=== PATIENT | male | born 1940 | race Caucasian/White ===

== ENCOUNTER 2019-04-16 15:13 | Emergency (ER) | payer OTHER ==
[2019-04-16 15:27] VITALS: BMI 27.6
--- NOTE | 2019-04-16 17:25 | PDOC ---
History of Present Illness - General Chief Complaint: Urinary Problem Stated Complaint: ENLARGED PROSTATE Time Seen by Provider: 04/16/19 17:20 Past History - Past Medical History Allergies/Adverse Reactions: Allergies Allergy/AdvReac Type Severity Reaction Status Date / Time No Known Allergies Allergy Verified 04/16/19 15:26 Home Medications: Ambulatory Orders Carvedilol [Coreg -] 12.5 mg PO BID 12/01/14 Cephalexin [Keflex] 500 mg PO QID #20 capsule 12/01/14 Ramipril 10 mg PO DAILY 12/01/14 COPD: No Disorders: Yes HTN: Yes - Immunization History Immunization Up to Date: Yes - Suicide/Smoking/Psychosocial Hx Smoking History: Never smoked Hx Alcohol Use: No Substance Use Type: None *Physical Exam - Vital Signs Last Vital Signs Temp Pulse Resp BP Pulse Ox 97.6 F 75 18 109/73 99 04/16/19 15:21 04/16/19 15:21 04/16/19 15:21 04/16/19 15:21 04/16/19 15:21 *DC/Admit/Observation/Transfer Diagnosis at time of Disposition: Loose bowel movements - Discharge Dispostion Disposition: HOME Condition at time of disposition: Stable Decision to Admit order: No - Referrals Referrals: Cady Gutierrez MD [Primary Care Provider] - - Patient Instructions Printed Discharge Instructions: DI for Diarrhea and Traveler's Diarrhea -- Adult Additional Instructions: You were seen in the emergency department for loose bowel movements after starting a new medication. Please follow up with your primary care provider as soon as possible, as well as your urologist within the next 7 days. Please return to the emergency department if you develop high fevers, nausea, vomiting , diarrhea that is not controlled with over the counter medication, bloody diarrhea, weakness, lightheadedness, or if you develop other symptoms that become concerning to you. - Post Discharge Activity
[2019-04-16] MEDS ORDERED: SODIUM CHLORIDE 0.9% 500 ML INFUS.BAG IV ONE (18:30)
[2019-04-16 19:16] LABS: BASO % 0.8 % (0-2.0); EOS % 1.8 % (0-4.5); HEMATOCRIT 34.7 % (35.4-49); HEMOGLOBIN 11.4 GM/dL (11.7-16.9); LYMPH % 21.9 % (8-40); MCH 27.4 pg (25.7-33.7); MCHC 32.9 g/dl (32.0-35.9); MEAN CELL VOLUME 83.4 fl (80-96); MEAN PLT VOLUME 7.9 fl (7.5-11.1); MONO % 11.7 % (3.8-10.2); NEUT % 63.8 % (42.8-82.8); PLATELET COUNT 298 K/MM3 (134-434); RBC 4.17 M/mm3 (4.00-5.60); RDW 14.2 % (11.9-15.9); WHITE BLOOD COUNT 8.4 K/mm3 (4.0-10.0)
--- NOTE | 2019-04-16 19:32 | PDOC ---
*Physical Exam - Vital Signs Last Vital Signs Temp Pulse Resp BP Pulse Ox 97.6 F 75 18 109/73 99 04/16/19 15:21 04/16/19 15:21 04/16/19 15:21 04/16/19 15:21 04/16/19 15:21 ED Treatment Course - LABORATORY CBC & Chemistry Diagram: 04/16/19 19:00 04/16/19 19:00 - ADDITIONAL ORDERS Additional order review: 04/16/19 19:00 RBC 4.17 MCV 83.4 MCHC 32.9 RDW 14.2 MPV 7.9 Neutrophils % 63.8 Lymphocytes % 21.9 Monocytes % 11.7 H Eosinophils % 1.8 Basophils % 0.8 - Medications Given in the ED: ED Medications Discontinued Medications Generic Name Dose Route Start Last Admin Trade Name Freq PRN Reason Stop Dose Admin Sodium Chloride 1,000 ml 04/16/19 18:30 04/16/19 18:59 Normal Saline - IV 04/16/19 18:31 1,000 ml ONCE ONE Administration Medical Decision Making - Medical Decision Making 04/16/19 19:27 78y/o M hx of BPH, HTN presented to ED for 4 loose bowel movements oand chills today. Plan: no loose stools while in the ED has received 1L Normal saline. Pending: CBC,CMP, dispo to home to follow up with PCP if labs are unremarkable *DC/Admit/Observation/Transfer Diagnosis at time of Disposition: Loose bowel movements - Discharge Dispostion Disposition: HOME Condition at time of disposition: Stable - Referrals Referrals: Cady Gutierrez MD [Primary Care Provider] - - Patient Instructions Printed Discharge Instructions: DI for Diarrhea and Traveler's Diarrhea -- Adult Additional Instructions: You were seen in the emergency department for loose bowel movements after starting a new medication. Please follow up with your primary care provider as soon as possible, as well as your urologist within the next 7 days. Please return to the emergency department if you develop high fevers, nausea, vomiting , diarrhea that is not controlled with over the counter medication, bloody diarrhea, weakness, lightheadedness, or if you develop other symptoms that become concerning to you. - Post Discharge Activity
[2019-04-16 19:47] LABS: ALBUMIN 3.5 g/dl (3.4-5.0); BILIRUBIN,TOTAL 0.3 mg/dL (0.2-1); BLOOD UREA NITROGEN 38.5 mg/dL (7-18); CALCIUM 9.1 mg/dL (8.5-10.1); CREATININE 2.2 mg/dL (0.55-1.3); POTASSIUM 4.1 mmol/L (3.5-5.1); TOT PROT 6.9 g/dl (6.4-8.2)
[2019-04-16 20:10] VITALS: BP 148/77; PULSE 74; TEMP 98
--- NOTE | 2019-04-16 20:36 | PDOC ---
Documentation entered by Oliva Field SCRIBE, acting as scribe for Cain Brower MD. Cain Brower MD: This documentation has been prepared by the Emir jeong Nirvannie, SCRIBE, under my direction and personally reviewed by me in its entirety. I confirm that the documentation accurately reflects all work, treatment, procedures, and medical decision making performed by me. Attending Attestation - Resident Resident Name: KoleThor - ED Attending Attestation I have performed the following: I have examined & evaluated the patient, The case was reviewed & discussed with the resident, I agree w/resident's findings & plan - HPI HPI: 04/16/19 18:38 CC: Loose stool. HPI: The patient is a 78 year old male, with a significant past medical history of BPH and HTN, who presents to the emergency department with, loose non-bloody stool. As per patient, he recently was started on an unknown medication for his BPH and endorses two episodes of loose stool (one yesterday and one today). He denies any recent fevers, chills, headache or dizziness. He denies any recent nausea or vomit. He denies any recent chest pain or shortness of breath. Allergies: NKDA Primary Care Physician: Dr. Gutierrez - Physicial Exam PE: 04/16/19 20:46 Vitals: Triage Vital signs reviewed General Appearance: no acute distress, well nourished well developed, Head: Atraumatic, normocephalic Neck: Supple;No Nuchal rigidity Chest Wall: Nontender Cardiac: Regular rate and rhythm, no murmurs, no rubs, no gallops, Lungs: Clear to auscultation bilateral, good air movement bilaterally, Abdomen: Soft, nondistended, normal bowel sounds, nontender to palpation Rectal: Exam deferred Extremities: Full range of motion to all extremities, no cyanosis, clubbing, or edema Skin: Warm and dry, no rashes or lesions, no petechiae Neuro: AOX3; Cranial Nerves 2-12 grossly c intact, Strength intact to all extremities, Sensation intact to all extremities, gait normal Psych: normal mood, normal affect - Medical Decision Making 04/17/19 00:41 78 years old with chronic kidney disease enlarged prostate recently started on a new prostate medication presents ED with 2 day history of diarrhea Labs within normal limits. (Known CKD) Patient will follow up with his primary care provider this week. Findings, need follow-up and strict return instructions discussed with patient.
== END 2019-04-16 20:15 | disposition home or self-care (01) ==
LOC: JER 15:13
PROC: 3E0337Z Introduction of Electrolytic and Water Balance Substance into Peripheral Vein, Percutaneous Approach (ICD-10-PCS; principal; 2019-04-16)
DX: R19.5 Other fecal abnormalities (principal); T50.995A Adverse effect of other drugs, medicaments and biological substances, initial encounter; Y92.89 Other specified places as the place of occurrence of the external cause; N40.0 Benign prostatic hyperplasia without lower urinary tract symptoms; I10 Essential (primary) hypertension
CPT/HCPCS: 36415; 80053; 85025; 99282-25

== ENCOUNTER 2019-04-21 10:07 | Emergency (ER) | payer OTHER ==
[2019-04-21 10:20] VITALS: TEMP 98.1; BMI 27.2
[2019-04-21 11:19] LABS: URINE APPEARANCE Slightly Cloudy; URINE BILIRUBIN 2+ (NEGATIVE); URINE COLOR Orange; URINE GLUCOSE (UA) Negative (NEGATIVE); URINE KETONE Trace (NEGATIVE); URINE LEUK ESTERASE 3+ (NEGATIVE); URINE NITRITE Positive (NEGATIVE); URINE PROTEIN 3+ (NEGATIVE)
[2019-04-21 11:47] LABS: BASO % 0.8 % (0-2.0); EOS % 0.8 % (0-4.5); HEMATOCRIT 30.8 % (35.4-49); HEMOGLOBIN 10.5 GM/dL (11.7-16.9); LYMPH % 14.7 % (8-40); MCH 28.1 pg (25.7-33.7); MCHC 34.1 g/dl (32.0-35.9); MEAN CELL VOLUME 82.4 fl (80-96); MEAN PLT VOLUME 6.8 fl (7.5-11.1); MONO % 8.2 % (3.8-10.2); NEUT % 75.5 % (42.8-82.8); PLATELET COUNT 417 K/MM3 (134-434); RBC 3.74 M/mm3 (4.00-5.60); WHITE BLOOD COUNT 9.8 K/mm3 (4.0-10.0)
[2019-04-21] MEDS ORDERED: CEFTRIAXONE 1,000 MG in DEXTROSE 5%-WATER - 50 ML IVPB ONE (11:52)
--- NOTE | 2019-04-21 11:58 | PDOC ---
Attending Attestation - Resident Resident Name: Tl Weiss - ED Attending Attestation I have performed the following: I have examined & evaluated the patient, The case was reviewed & discussed with the resident, I agree w/resident's findings & plan, Exceptions are as noted - HPI HPI: 04/21/19 11:56 78y M hx of urinary retention, curently being worked up by urology presents with hemturia and dysuria yesterday, had gone to his urologist and had a campo placed , started on keflx (but pt had yet to fill his rx). note this morning he felt malaise this morning withou any focality including cp, sob, n/v, diaphoresis, abd pain, back pain, fever/chills. on exam pt wel appearing in no distress card: rrr no mrg pulm: cta b/l abd soft nontender, nondistended abdomen, no cva tenderness, campo in place w/ leg bag pts UA noted fo Richard will ck basic labs will give 1st dose of abx deedee gonzalez
[2019-04-21 12:00] LABS: INR 1.26 (0.83-1.09); PROTHROMBIN TIME (PATIENT) 14.9 SEC (9.7-13.0)
[2019-04-21] MEDS ORDERED: CEFTRIAXONE 1 GM/50 ML BAG ONE (12:00)
[2019-04-21] MEDS ORDERED: SODIUM CHLORIDE 0.9% 1000 ML INFUS.BAG IV ONE (12:24)
[2019-04-21 12:25] LABS: ALBUMIN 3.1 g/dl (3.4-5.0); BILIRUBIN,TOTAL 0.4 mg/dL (0.2-1); BLOOD UREA NITROGEN 25.5 mg/dL (7-18); CALCIUM 8.6 mg/dL (8.5-10.1); CREATININE 1.7 mg/dL (0.55-1.3); POTASSIUM 4.3 mmol/L (3.5-5.1); TOT PROT 6.2 g/dl (6.4-8.2)
--- NOTE | 2019-04-21 12:43 | PDOC ---
History of Present Illness - General Chief Complaint: Hematuria Stated Complaint: HEMATURIA Time Seen by Provider: 04/21/19 10:21 History Source: Patient Exam Limitations: No Limitations - History of Present Illness Initial Comments: 04/21/19 12:42 78M with a PMH of HTN and BPH who presents to the ER from his urologist's office for hematuria. The patient states that he has had recent urological issues requiring multiple campo catheter insertions. Yesterday, he began to feel unwell and went to his urologists office. He noticed blood in his urine while giving a sample. He then had a campo catheter placed for retention. Since then, he's noticed that he still has red/pink urine but it has been clearing up. He also admits to "some" suprapubic abdominal pain which started last night. He denies fever, chills, nausea, vomiting, discharge, testicular pain, CP , SOB. He states that he came to the ER because he felt lightheaded this morning but denies other symptoms as mentioned. Past History - Past Medical History Allergies/Adverse Reactions: Allergies Allergy/AdvReac Type Severity Reaction Status Date / Time No Known Allergies Allergy Verified 04/16/19 15:26 Home Medications: Ambulatory Orders Carvedilol [Coreg -] 25 mg PO BID 12/01/14 Ramipril 10 mg PO DAILY 12/01/14 Dutasteride 0.5 mg PO DAILY 04/21/19 Silodosin 8 mg PO DAILY 04/21/19 COPD: No Disorders: Yes HTN: Yes Other medical history: enlarged prostate - Immunization History Immunization Up to Date: Yes - Psycho Social/Smoking Cessation Hx Smoking History: Never smoked Have you smoked in the past 12 months: No Information on smoking cessation initiated: No Hx Alcohol Use: No Drug/Substance Use Hx: No Substance Use Type: None Review of Systems - Review of Systems Able to Perform ROS?: Yes Comments:: 04/21/19 12:47 GENERAL/CONSTITUTIONAL: No fever or chills. No weakness. HEAD, EYES, EARS, NOSE AND THROAT: No change in vision. No ear pain or discharge. No sore throat. CARDIOVASCULAR: + for lightheadedness. No chest pain or palpitations RESPIRATORY: No cough, wheezing, shortness of breath, or hemoptysis. GASTROINTESTINAL: + for suprapubic abd pain. No nausea, vomiting, diarrhea, or constipation. GENITOURINARY: + for dysuria and hematuria. No frequency or change in urination. MUSCULOSKELETAL: No joint or muscle swelling or pain. No neck or back pain. SKIN: No rash or lesions. NEUROLOGIC: No headache, numbness, tingling, focal weakness, loss of consciousness, or change in strength/sensation. Is the patient limited Malay proficient: No *Physical Exam - Vital Signs Last Vital Signs Temp Pulse Resp BP Pulse Ox 98.1 F 67 16 122/83 100 04/21/19 10:16 04/21/19 10:16 04/21/19 10:16 04/21/19 10:16 04/21/19 10:16 - Physical Exam Comments: 04/21/19 12:47 GENERAL: Well developed, well nourished. Awake and alert. No acute distress. HEENT: Normocephalic, atraumatic. Hearing grossly normal. Moist mucous membranes. PERRLA, EOMI. No conjunctival pallor. Sclera are non-icteric. NECK: Supple. Full ROM. No JVD. CARDIOVASCULAR: Regular rate and rhythm. No murmurs, rubs, or gallops. PULMONARY: No evidence of respiratory distress. Lungs clear to auscultation bilaterally. No wheezing, rales or rhonchi. ABDOMINAL: Soft. Mild TTP in suprapubic abdomen. Non-distended. No rebound or guarding. GENITOURINARY: No CVA tenderness bilaterally. Campo catheter in place. MUSCULOSKELETAL: Normal range of motion at all joints. No bony deformities or tenderness. EXTREMITIES: No cyanosis. No clubbing. No edema. No calf tenderness or swelling. SKIN: Warm and dry. Normal capillary refill. No rashes. No jaundice. NEUROLOGICAL: Alert, awake, appropriate. Cranial nerves 2-12 grossly intact. Normal speech. Gait is normal without ataxia. PSYCHIATRIC: Cooperative. Good eye contact. Appropriate mood and affect. ED Treatment Course - LABORATORY CBC & Chemistry Diagram: 04/21/19 11:40 04/21/19 11:40 - ADDITIONAL ORDERS Additional order review: Laboratory Results 04/21/19 04/21/19 04/21/19 11:40 11:40 11:40 PT with INR 14.90 H INR 1.26 H Sodium 136 Potassium 4.3 Chloride 102 Carbon Dioxide 25 Anion Gap 9 BUN 25.5 H Creatinine 1.7 H Est GFR (CKD-EPI)AfAm 44.41 Est GFR (CKD-EPI)NonAf 38.32 Random Glucose 105 Calcium 8.6 Total Bilirubin 0.4 AST 14 L ALT 32 Alkaline Phosphatase 92 Creatine Kinase 267 Troponin I < 0.02 Total Protein 6.2 L Albumin 3.1 L Urine Color Urine Appearance Urine pH Ur Specific [place] Urine Protein Urine Glucose (UA) Urine Ketones Urine Blood Urine Nitrite Urine Bilirubin Urine Urobilinogen Ur Leukocyte Esterase 04/21/19 10:40 PT with INR INR Sodium Potassium Chloride Carbon Dioxide Anion Gap BUN Creatinine Est GFR (CKD-EPI)AfAm Est GFR (CKD-EPI)NonAf Random Glucose Calcium Total Bilirubin AST ALT Alkaline Phosphatase Creatine Kinase Troponin I Total Protein Albumin Urine Color [place] Urine Appearance Slightly cloudy Urine pH 7.0 Ur Specific [place] 1.020 Urine Protein 3+ H Urine Glucose (UA) Negative Urine Ketones Trace Urine Blood 3+ H Urine Nitrite Positive Urine Bilirubin 2+ H Urine Urobilinogen 1.0 Ur Leukocyte Esterase 3+ H 04/21/19 11:40 RBC 3.74 L MCV 82.4 MCHC 34.1 RDW 14.0 MPV 6.8 L D Neutrophils % 75.5 Lymphocytes % 14.7 D Monocytes % 8.2 Eosinophils % 0.8 Basophils % 0.8 - Medications Given in the ED: ED Medications Discontinued Medications Generic Name Dose Route Start Last Admin Trade Name Freq PRN Reason Stop Dose Admin Ceftriaxone Sodium 1,000 mg/ 50 mls @ 100 mls/hr 04/21/19 11:52 04/21/19 12: 04 Dextrose IVPB 04/21/19 12:21 100 mls/hr ONCE ONE Administration Sodium Chloride 1,000 ml 04/21/19 12:24 04/21/19 12:34 Normal Saline - IV 04/21/19 12:25 1,000 ml ONCE ONE Administration Medical Decision Making - Medical Decision Making 04/21/19 12:48 78M with a PMH of BPH and HTN who presents to the ER with complaints of hematuria and lightheadedness. EKG and troponin WNL. CBC shows Hgb of 10.5 from 11.4. UA shows UTI for which he was prescribed outpt abx yesterday but did not fill. Will give 1 g ceftraixone here and fluids. Case d/w Dr. Price at [facility] who agrees with plan and will f/u w/ patient in an outpatient setting. Discharge - Discharge Information Problems reviewed: Yes Clinical Impression/Diagnosis: Hematuria Qualifiers: Hematuria type: unspecified type Qualified Code(s): R31.9 - Hematuria, unspecified Condition: Stable Disposition: HOME - Admission No - Follow up/Referral Referrals: Cady Gutierrez MD [Primary Care Provider] - - Patient Discharge Instructions Patient Printed Discharge Instructions: How to Care for Your Campo Catheter -- Male Additional Instructions: Your ER visit is not complete until your follow up with your urologist and primary care physician. Please follow up with your primary care physician in 1- 2 days. Keep your appointment with your urologist. GET YOUR ANTIBIOTICS FILLED AND TAKE THEM PRESCRIBED. Please return to the ER if you have any signs or symptoms of chest pain, shortness of breath, uncontrollable fever, chills, nausea, vomiting, numbness, tingling, or weakness in any part of your body, changes in vision, or slurred speech. Please take your medications as prescribed. Please return to the ER if symptoms persist, worsen, or new symptoms arise. - Post Discharge Activity
[2019-04-21 13:14] LABS: EPI CELLS 21 /HPF (0-5/HPF); HYALINE CASTS 45.76 /lpf (0-8); URINE BACTERIA 2+ /hpf (NEGATIVE); URINE RBC 398.1 /hpf (0-4)
[2019-04-21 13:55] VITALS: BP 133/77; PULSE 62
--- NOTE | 2019-04-21 13:58 | EKG ---
Test Reason : Blood Pressure : / mmHG Vent. Rate : 069 BPM Atrial Rate : 069 BPM P-R Int : 162 ms QRS Dur : 096 ms QT Int : 426 ms P-R-T Axes : 064 023 028 degrees QTc Int : 456 ms SINUS RHYTHM WITH OCCASIONAL PREMATURE VENTRICULAR COMPLEXES AND PREMATURE ATRIAL COMPLEXES OTHERWISE NORMAL ECG NO PREVIOUS ECGS AVAILABLE Confirmed by RAI NOEL MD ([id number]) on 04/21/2019 1:58:18 PM Referred By: Confirmed By:RAI NOEL MD
== END 2019-04-21 15:20 | disposition home or self-care (01) ==
LOC: JER 10:07
DX: N39.0 Urinary tract infection, site not specified (principal); R31.9 Hematuria, unspecified; N40.0 Benign prostatic hyperplasia without lower urinary tract symptoms; I10 Essential (primary) hypertension; B95.1 Streptococcus, group B, as the cause of diseases classified elsewhere
CPT/HCPCS: 36415; 80053; 81003; 82550; 82553; 84484; 85025; 85610; 87077; 87086; 93005; 93010; 96365; 99283-25; J7030

== ENCOUNTER 2019-04-23 09:25 | Inpatient (IN) | payer OTHER ==
--- NOTE | 2019-04-23 09:50 | PDOC ---
History of Present Illness - General Chief Complaint: Urinary Problem Stated Complaint: HEMATURIA Time Seen by Provider: 04/23/19 09:49 History Source: Patient Exam Limitations: No Limitations - History of Present Illness Initial Comments: Pt is a 78 yo M, with PMH of HTN, BPH, and recent campo catheterization 2/2 BPH/ bladder stricture, who is presenting with hematuria in the campo bag. Pt states the hematuria had improved since his last visit to the ER a few days ago, but noticed increased irritation and pain at the tip of his penis. The campo is draining well with no leakage around the meatus. Pt started PO abx after this visit (500 mg PO keflex TID). Pt denies any recent fevers/chills, headache, vision changes, syncope, chest pain, palpitations, SOB, nausea/vomiting, abdominal pain, diarrhea/constipation, or leg swelling. Allergies: NKDA PCP: Dr. Gutierrez Social: Pt denies any cigarette, alcohol, or drug use. Pt denies any recent travel or sick contacts. Surgical: no relevant history. Family: no relevant history. 04/23/19 11:23 04/23/19 12:55 Past History - Travel Traveled outside of the country in the last 30 days: No Close contact w/someone who was outside of country & ill: No - Past Medical History Allergies/Adverse Reactions: Allergies Allergy/AdvReac Type Severity Reaction Status Date / Time No Known Allergies Allergy Verified 04/23/19 09:38 Home Medications: Ambulatory Orders Carvedilol [Coreg -] 25 mg PO BID 12/01/14 Ramipril 10 mg PO DAILY 12/01/14 Silodosin 8 mg PO DAILY 04/21/19 Cephalexin [Keflex] 500 mg PO TID 04/23/19 Dutasteride 0.5 mg PO DAILY 04/23/19 COPD: No Disorders: Yes HTN: Yes - Immunization History Immunization Up to Date: Yes - Psycho Social/Smoking Cessation Hx Smoking History: Never smoked Have you smoked in the past 12 months: No Hx Alcohol Use: No Drug/Substance Use Hx: No Substance Use Type: None Review of Systems - Review of Systems Able to Perform ROS?: Yes Is the patient limited Japanese proficient: No Constitutional: Yes: Weight Stable. No: Chills, Diaphoresis, Fever, Loss of Appetite, Malaise, Weakness HEENTM: No: Recent change in vision, Nose Congestion, Throat Pain, Throat Swelling, Difficulty Swallowing Respiratory: No: Cough, Orthopnea, Shortness of Breath Cardiac (ROS): No: Chest Pain, Edema, Irregular Heart Rate, Lightheadedness, Palpitations, Syncope, Chest Tightness ABD/GI: No: Abdominal Distended, Diarrhea, Nausea, Poor Appetite, Poor Fluid Intake, Vomiting : Yes: Hematuria, Other (penile irritation 2/2 campo placement, no penile discharge). No: Burning, Dysuria, Frequency, Flank Pain, Pain, Urgency Musculoskeletal: No: Back Pain, Muscle Pain, Muscle Weakness Integumentary: No: Rash Neurological: No: Headache, Numbness, Weakness, Unsteady Gait, Dizziness Psychiatric: No: Sleep Pattern Change, Change in Appetite Endocrine: No: Increased Urine, Change in Weight Hematologic/Lymphatic: Yes: Anemia. No: Blood Clots, Easy Bleeding, Easy Bruising All Other Systems: Reviewed and Negative *Physical Exam - Vital Signs Last Vital Signs Temp Pulse Resp BP Pulse Ox 97.3 F L 73 18 116/72 98 04/23/19 09:34 04/23/19 09:34 04/23/19 09:34 04/23/19 09:34 04/23/19 09:34 - Physical Exam Comments: Vitals stable, pt afebrile. Pt in NAD, normal body habitus. Pt alert and oriented x3. frame polisher generally intact, muscular strength and sensation intact. No midline spinal tenderness, step-offs, or crepitus. Head normocephalic, atraumatic. Eyes PERRLA, EOMI. Oropharynx without erythema or exudates, no LAD b/l. No nasal congestion. Hearing intact. Clear heart sounds, S1/S2, no JVD, b/l pedal edema, or heart murmur. Clear lung sounds, no respiratory distress, wheezes, crackles, or accessory muscle use. No abdominal or CVA tenderness to palpation, no rebound, no guarding. Abdomen soft, non-distended, and with normoactive bowel sounds. Campo catheter with hematuria (blood mixed into urine, no obvious clots). Mild erythema around penile meatus, no discharge or leakage of urine around campo. Skin without jaundice or rash. 04/23/19 13:00 ED Treatment Course - LABORATORY CBC & Chemistry Diagram: 04/23/19 10:10 04/23/19 10:10 Medical Decision Making - Medical Decision Making Pt was seen at bedside, also will be seen by attending Dr. Harley. Pt presenting with continued hematuria from campo, despite outpatient antibiotics. Will evaluate for stable H/H, renal function, urinary infection to determine need for campo catheter replacement. Pt will require admission if continued UTI , as pt has then failed outpatient trial of antibiotics. Provided 1 L IV NS for improvement of hydration. Will continue to reassess pt and monitor for symptomatic improvement. CBC -- stable H/H from last visit CMP -- BUN/Cr at pt baseline -- providing IVF UA shows continued UTI -- will replace campo catheter and provide 1 g IV ceftriaxone. Pt admitted to Dr. Gutierrez. Consult placed for Urology (Dr. Melgoza). Pt requires inpatient admission due to continued UTI after outpatient antibiotic trial. Pt has f/u with urology x2 days for further evaluation. 04/23/19 11:37 04/23/19 13:38 04/23/19 13:42 Discharge - Discharge Information Problems reviewed: Yes Clinical Impression/Diagnosis: Campo catheter in place UTI (urinary tract infection) Qualifiers: Urinary tract infection type: acute cystitis Hematuria presence: with hematuria Qualified Code(s): N30.01 - Acute cystitis with hematuria Hematuria Qualifiers: Hematuria type: unspecified type Qualified Code(s): R31.9 - Hematuria, unspecified Condition: Stable - Admission Yes - Follow up/Referral - Patient Discharge Instructions - Post Discharge Activity
--- NOTE | 2019-04-23 10:02 | PDOC ---
Attending Attestation - Resident Resident Name: HeatherMegan - ED Attending Attestation I have performed the following: I have examined & evaluated the patient, The case was reviewed & discussed with the resident, I agree w/resident's findings & plan, Exceptions are as noted - HPI HPI: 04/23/19 11:02 78yo male with hx of bph and urethra stricture with indwelling catheter presents for eval of hematuria. 3rd visit over last few days. Pt saw DR. Price on for hematuria- had had campo catheter placed. Dx with UTI - given abx on wednesday and started keflex yesterday. Pt states urine cleared yesterday, then this AM noticed pink tinged urine. Has had 3 days of abx. Pt states mild tinge of pain to tip of penis. No abd pain. No flank pain. NO f/c. No cp/sob. 1 episode of loose stool this AM. States had mild lightheaded this am- since resolved. No other complaints. - Physicial Exam PE: 04/23/19 11:07 Gen: aaox3, nad heart: +s1s2 reg lungs: cta b/l abd: soft,nt/nd +bs : penis with campo catheter in place, leg bag with pink tinged urine - no clots, specks of blood present, tip of penis with mild skin breakdown- no erythema, no drainage, no leakage around the campo ext: no c/c/e - Medical Decision Making 04/23/19 11:08 a/p: 78yo male with campo -recently dx uti and on keflex with return of hematuria today -pt with recent dx of mild kidney injury from urinary retention -scheduled for sx on wednesday with Dr. Price- urology -will resent labs, h/h, ua, ucx -pt has been on outpt abx -will monitor and reassess 04/23/19 11:40 pt without elevated wbc cr at baseline however, still with uti despite abx will admit for iv abx as pt is scheduled for bladder surgery and procedure on wednesday. resident discussed the case with Dr. Gutierrez who accepts pt to service
[2019-04-23] MEDS ORDERED: SODIUM CHLORIDE 1,000 ML IV STA (10:12)
[2019-04-23 10:33] LABS: EPI CELLS 36.1 /HPF (0-5/HPF); HYALINE CASTS 67 /lpf (0-8); URINE APPEARANCE TURBID; URINE BACTERIA 1.9 /hpf (NEGATIVE); URINE BILIRUBIN NEGATIVE (NEGATIVE); URINE COLOR RED; URINE GLUCOSE (UA) NEGATIVE (NEGATIVE); URINE KETONE NEGATIVE (NEGATIVE); URINE LEUK ESTERASE 2+ (NEGATIVE); URINE NITRITE NEGATIVE (NEGATIVE); URINE PROTEIN 3+ (NEGATIVE); URINE RBC 625 /hpf (0-4); URINE UROBILINOGEN 0.2 mg/dL (0.2-1.0); URINE WBC 21 /hpf (0-5)
[2019-04-23 10:42] LABS: EOS % 4.3 % (0-4.5); HEMATOCRIT 31.5 % (35.4-49); HEMOGLOBIN 10.4 GM/dL (11.7-16.9); MCH 27.3 pg (25.7-33.7); MCHC 33.1 g/dl (32.0-35.9); MEAN CELL VOLUME 82.6 fl (80-96); MEAN PLT VOLUME 7.7 fl (7.5-11.1); MONO % 8.6 % (3.8-10.2); NEUT % 68.1 % (42.8-82.8); PLATELET COUNT 495 K/MM3 (134-434); RBC 3.81 M/mm3 (4.00-5.60); WHITE BLOOD COUNT 8.2 K/mm3 (4.0-10.0)
[2019-04-23] MEDS ORDERED: CEFTRIAXONE 1,000 MG in DEXTROSE 5%-WATER - 50 ML IVPB ONE (10:55)
[2019-04-23 10:56] LABS: ALBUMIN 3.2 g/dl (3.4-5.0); BILIRUBIN,TOTAL 0.3 mg/dL (0.2-1); BLOOD UREA NITROGEN 22.3 mg/dL (7-18); CALCIUM 8.9 mg/dL (8.5-10.1); CREATININE 1.6 mg/dL (0.55-1.3); POTASSIUM 4.2 mmol/L (3.5-5.1); TOT PROT 6.2 g/dl (6.4-8.2)
[2019-04-23] MEDS ORDERED: CEFTRIAXONE 1 GM/50 ML BAG ONE (11:42)
[2019-04-23] MEDS ORDERED: RAMIPRIL 5 MG CAPSULE (FP) ONE (13:05)
[2019-04-23] MEDS: RAMIPRIL 5 MG CAPSULE (FP) PO SCH (13:10)
--- NOTE | 2019-04-23 14:49 | HP ---
DATE OF ADMISSION: 04/23/2019 This is a 78-year-old male, known to have hypertension, BPH, came to the emergency room with complaints of hematuria. He was seen by and Rhona, diagnosed to have UTI and BPH, planning for prostatic surgery, also known to have some renal insufficiency, thought to be because of retention of the urine. At present, he takes carvedilol 25 mg b.i.d. and ramipril 10 mg once a day. Also was taking silodosin and dutasteride for BPH. He is not a smoker. No drug abuse. 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 He has family. This morning, he is feeling better after the catheter, no dysuria. PHYSICAL EXAMINATION TODAY: Vital Signs: BP is 140/80, pulse 72, respiration 20, temperature 98. HEENT: Unremarkable. Neck: Supple, no JVD. Lungs: Clear. Heart: S1, S2 normal. No S3, S4. Abdomen: Soft. Legs: No edema. Neurological: Grossly normal. Genitourinary: Has a Syed. Urine is clear. LABORATORY REPORTS: WBC 8.2, hemoglobin 10.4, hematocrit 31.5. Chemistry: Sodium 136, potassium 4.2, chloride 104, BUN 22.3, creatinine 1.6, blood sugar 116. Urine: RBCs 20, leukocyte esterase plus, WBCs 21. Chest x-ray: Not done. EKG: Not evaluated. IMPRESSION: Urinary tract infection, benign prostatic hypertrophy, hypertension. PLAN: IV antibiotics; consult, Dr. Melgoza. Will follow. Daniel [id number]
[2019-04-23 17:13] VITALS: BMI 26.6
--- NOTE | 2019-04-23 19:07 | CONSULT ---
Consult Consult Specialty:: urology Reason for Consultation:: Gross hematuria - History of Present Illness Chief Complaint: 78 Y/O Male patient with history of DM, HT and BPH developed AUR 4 days ago and campo catheter was inserted then he presented to ER for gross hematuria nd fever, no pain. he admitted for IV abx. O/E soft lax abd, 18 F campo catheter inplace with clear urine drain. genitalia WNL. WBC 8.2. HGB 10.4. BUN 22.3 S.Creat 1.6 - Alcohol/Substance Use Hx Alcohol Use: Yes (OCCASIONAL) - Smoking History Smoking history: Former smoker Have you smoked in the past 12 months: No If you are a former smoker, when did you quit?: 1971 Home Medications - Allergies Allergies/Adverse Reactions: Allergies Allergy/AdvReac Type Severity Reaction Status Date / Time No Known Allergies Allergy Verified 04/23/19 09:38 - Home Medications Home Medications: Ambulatory Orders Carvedilol [Coreg -] 25 mg PO BID 12/01/14 Ramipril 10 mg PO DAILY 12/01/14 Silodosin 8 mg PO DAILY 04/21/19 Cephalexin [Keflex] 500 mg PO TID 04/23/19 Dutasteride 0.5 mg PO DAILY 04/23/19 Physical Exam Vital Signs: Vital Signs Temperature 98.5 F 04/23/19 18:14 Pulse Rate 74 04/23/19 18:14 Respiratory Rate 20 04/23/19 18:14 Blood Pressure 117/54 L 04/23/19 18:14 O2 Sat by Pulse Oximetry (%) 96 04/23/19 18:00 Labs: CBC, BMP 04/23/19 10:10 04/23/19 10:10 Assessment/Plan BPH & AUR Gross hematuria UTI Plan: keep campo catheter continue IV abx Renal and pelvic US will do Cystoscopy and possible TUVP later on
[2019-04-23] MEDS ORDERED: FLU VACCINE QUAD 60 MCG/0.5 ML (MDV 19-20) IM ONE (20:00)
[2019-04-23] MEDS ORDERED: CIPROFLOXACIN 400 MG/D5W 400 MG/200 ML IVPB IVPB SCH (22:00)
[2019-04-23] MEDS: CARVEDILOL 25 MG TABLET (FP) PO SCH (22:24)
[2019-04-24] MEDS: CARVEDILOL 25 MG TABLET (FP) PO SCH ×2 (09:53→21:26)
[2019-04-24] MEDS: RAMIPRIL 5 MG CAPSULE (FP) PO SCH (09:53)
--- NOTE | 2019-04-24 11:28 | PN ---
Progress Note, Physician Chief Complaint: No new complaints - Current Medication List Current Medications: Active Medications Carvedilol (Coreg -) 25 mg PO BID [facility] Last Admin: 04/24/19 09:53 Dose: 25 mg Levofloxacin (Levaquin 500 Mg Premixed Ivpb -) 500 mg in 100 mls @ 100 mls/hr IVPB DAILY [facility] Last Admin: 04/24/19 09:54 Dose: 100 mls/hr Ramipril (Altace -) 10 mg PO DAILY [facility] Last Admin: 04/24/19 09:53 Dose: 10 mg - Objective Vital Signs: Vital Signs Temperature 98.6 F 04/24/19 10:00 Pulse Rate 74 04/24/19 10:00 Respiratory Rate 20 04/24/19 10:00 Blood Pressure 127/78 04/24/19 10:00 O2 Sat by Pulse Oximetry (%) 96 04/24/19 09:00 HEENT: Mm moist NECK: No JVD, CHEST: CTA B/L CVS: S1S2 R ABD: No distention, non tender EXT: No edema feet, no calf tenderness PACKAGING ENGINEER: AOX3 non focal Labs: CBC, BMP 04/23/19 10:10 04/23/19 10:10 Problem List - Problems (1) UTI (urinary tract infection) Assessment/Plan: on Levofloxacin 500 mg IV daily Code(s): N39.0 - URINARY TRACT INFECTION, SITE NOT SPECIFIED Qualifiers: Urinary tract infection type: acute cystitis Hematuria presence: with hematuria Qualified Code(s): N30.01 - Acute cystitis with hematuria (2) Hematuria Assessment/Plan: Due to UTI improving Code(s): R31.9 - HEMATURIA, UNSPECIFIED Qualifiers: Hematuria type: unspecified type Qualified Code(s): R31.9 - Hematuria, unspecified (3) LUPIS (acute kidney injury) Assessment/Plan: Due to obstructive uropathy now stable Code(s): N17.9 - ACUTE KIDNEY FAILURE, UNSPECIFIED (4) HTN (hypertension) Assessment/Plan: well controlled cont current meds. Code(s): I10 - ESSENTIAL (PRIMARY) HYPERTENSION (5) BPH (benign prostatic hyperplasia) Assessment/Plan: cont home meds Code(s): N40.0 - BENIGN PROSTATIC HYPERPLASIA WITHOUT LOWER URINRY TRACT SYMP
[2019-04-24 12:41] LABS: BASO % 1.3 % (0-2.0); HEMATOCRIT 29.7 % (35.4-49); LYMPH % 27.9 % (8-40); MCH 27.9 pg (25.7-33.7); MCHC 33.5 g/dl (32.0-35.9); MEAN CELL VOLUME 83.3 fl (80-96); MEAN PLT VOLUME 6.7 fl (7.5-11.1); MONO % 9.9 % (3.8-10.2); NEUT % 56.9 % (42.8-82.8); PLATELET COUNT 493 K/MM3 (134-434); RBC 3.57 M/mm3 (4.00-5.60); WHITE BLOOD COUNT 7.5 K/mm3 (4.0-10.0)
[2019-04-24 13:04] LABS: BLOOD UREA NITROGEN 21.7 mg/dL (7-18); CALCIUM 9.1 mg/dL (8.5-10.1); CREATININE 1.8 mg/dL (0.55-1.3); POTASSIUM 4.6 mmol/L (3.5-5.1)
[2019-04-24] MEDS: BACITRACIN/POLYMYXIN B SULFATE 15 GM TUBE TP SCH ×2 (15:24→21:26)
[2019-04-25 06:43] LABS: BASO % 0.9 % (0-2.0); EOS % 3.9 % (0-4.5); HEMATOCRIT 29.2 % (35.4-49); HEMOGLOBIN 9.8 GM/dL (11.7-16.9); LYMPH % 33.8 % (8-40); MCH 27.8 pg (25.7-33.7); MCHC 33.5 g/dl (32.0-35.9); MEAN CELL VOLUME 82.8 fl (80-96); MEAN PLT VOLUME 7.1 fl (7.5-11.1); MONO % 8.5 % (3.8-10.2); NEUT % 52.9 % (42.8-82.8); PLATELET COUNT 501 K/MM3 (134-434); RBC 3.52 M/mm3 (4.00-5.60); RDW 14.5 % (11.9-15.9); WHITE BLOOD COUNT 8.4 K/mm3 (4.0-10.0)
[2019-04-25 07:11] LABS: BILIRUBIN,TOTAL 0.2 mg/dL (0.2-1); CALCIUM 8.8 mg/dL (8.5-10.1); CREATININE 1.8 mg/dL (0.55-1.3); POTASSIUM 4.3 mmol/L (3.5-5.1); TOT PROT 6.1 g/dl (6.4-8.2)
[2019-04-25] MEDS: RAMIPRIL 5 MG CAPSULE (FP) PO SCH (09:28)
[2019-04-25] MEDS: CARVEDILOL 25 MG TABLET (FP) PO SCH (09:29)
[2019-04-25] MEDS: BACITRACIN/POLYMYXIN B SULFATE 15 GM TUBE TP SCH (10:42)
--- NOTE | 2019-04-25 12:12 | DS ---
Physical Examination Vital Signs: Vital Signs Temperature 97.9 F 04/25/19 06:14 Pulse Rate 58 L 04/25/19 06:14 Respiratory Rate 20 04/25/19 09:00 Blood Pressure 140/65 04/25/19 06:14 O2 Sat by Pulse Oximetry (%) 98 04/25/19 09:00 HEENT: Mm moist NECK: No JVD, CHEST: CTA B/L CVS: S1S2 R ABD: No distention, non tender EXT: No edema feet, no calf tenderness CONTRACT NEGOTIATION SPECIALIST: AOX3 non focal Labs: CBC, BMP 04/25/19 05:30 04/25/19 05:30 Discharge Summary Reason For Visit: URINARY TRACT INFECTION/HEMATURIA Current Active Problems LUPIS (acute kidney injury) (Acute) BPH (benign prostatic hyperplasia) (Acute) Syed catheter in place (Acute) HTN (hypertension) (Acute) Hematuria (Acute) UTI (urinary tract infection) (Acute) Condition: Stable - Instructions Referrals: Cady Gutierrez MD [Primary Care Provider] - 1 Month Sami Melgoza MD [Staff Physician] - 05/02/19 10:00 am - Home Medications Comprehensive Discharge Medication List: Ambulatory Orders Carvedilol [Coreg -] 25 mg PO BID 12/01/14 Ramipril 10 mg PO DAILY 12/01/14 Silodosin 8 mg PO DAILY 04/21/19 Dutasteride 0.5 mg PO DAILY 04/23/19 levoFLOXacin [Levaquin -] 500 mg PO DAILY #7 tablet 04/24/19
[2019-04-25 12:30] VITALS: BP 132/88; PULSE 65; TEMP 97.6
== END 2019-04-25 15:24 | disposition home or self-care (01) | DRG 690 ==
LOC: JER 09:25 → JERBED 10:59 → J8W 15:34
PROVIDERS: ADMIT Internal Medicine; ATTEND Internal Medicine
DX: N30.01 Acute cystitis with hematuria (principal); N17.9 Acute kidney failure, unspecified; I10 Essential (primary) hypertension; N40.0 Benign prostatic hyperplasia without lower urinary tract symptoms; Z87.891 Personal history of nicotine dependence
CPT/HCPCS: 36415; 80048; 80053; 81003; 85025; 87086; 99284-25; J7030

== ENCOUNTER 2019-05-05 10:44 | Inpatient (IN) | payer OTHER ==
--- NOTE | 2019-05-05 11:03 | PDOC ---
History of Present Illness - General Chief Complaint: Lightheaded Stated Complaint: Lightheaded History Source: Patient, EMS Exam Limitations: No Limitations - History of Present Illness Initial Comments: 05/05/19 11:00 78YOM h/o HTN, BPH, CKD, and recently diagnosed BPH with urethral stricture now about a month s/p cystoscopy (after which time he was started on new medications ) who was BIBEMS for low wrist cuff BP and lightheadedness with vision blurriness, onset while he was sitting on his couch drinking coffee this morning. It worsened when he stood up from the couch and he needed to grab a rail to stabilize himself and his caught him, so he did not fall. EMS notes that their initial BP measurement was hypotensive. He was seen here in the ED on 04/16/19 (for diarrhea thought d/t one of his new medications which he has since stopped, now resolved), 04/21 (for hematuria and dysuria dx with UTI and went home with a Syed and on ciprofloxacin), and finally admitted on -04/25/19 with UTI and hematuria (got IV Levaquin and then discharged home with a Syed catheter on PO Levaquin). He notes he has been doing better for the past 10 days since discharge and finished the Levaquin without issue. He has had several other episodes of milder lightheadedness this past week. Denies LOC, n/t/w focally, chest pain, palpitations, edema, SALAZAR, neck pain, abdominal pain, hematuria, rectal bleeding, or other new issues. He expresses concern about all the medications he is on now, and believes this is causing his lightheadedness episodes. His BP has been measuring lower than normal lately too. He was already on carvedilol and ramipril for HTN and in March was started on silodosin, dutasteride. Past History - Past Medical History Allergies/Adverse Reactions: Allergies Allergy/AdvReac Type Severity Reaction Status Date / Time No Known Allergies Allergy Verified 04/23/19 09:38 Home Medications: Ambulatory Orders Carvedilol [Coreg -] 6.25 mg PO BID tablet 05/07/19 Ciprofloxacin HCl [Cipro] 500 mg PO BID 05/09/19 COPD: No Disorders: Yes HTN: Yes - Immunization History Immunization Up to Date: Yes - Psycho Social/Smoking Cessation Hx Smoking History: Former smoker Have you smoked in the past 12 months: No If you are a former smoker, when did you quit?: 1972 Hx Alcohol Use: Yes (OCCASIONAL) Drug/Substance Use Hx: No Substance Use Type: None Hx Substance Use Treatment: No Review of Systems - Review of Systems Able to Perform ROS?: Yes Comments:: 05/05/19 11:43 GEN: no fever, chills, night sweats, generalized weakness, malaise, or unintentional weight change HEENT: no ear pain, congestion, sore throat, rhinorrhea, nosebleed, or eye pain CV: lightheadedness, pre-syncope, no chest pain, palpitations, edema, or exercise intolerance RESP: no cough, wheezing, or SOB GI: no abdominal pain, nausea, vomiting, diarrhea, constipation, appetite change , or white/black/bloody stool : no dysuria, hematuria, frequency, incontinence, retention, pruritis, bleeding, or discharge MSK: no muscle weakness or pain, no muscle wasting, no joint swelling or pain NEURO: no headache, seizure, vertigo, numbness, tingling, focal weakness, or difficulty walking/talking PSYCH: no insomnia, behavior change, SI, HI, or substance use SKIN: no prutitis, excessive dryness, jaundice, rash, cuts, or unexplained bruises ROS otherwise negative except as noted in HPI *Physical Exam - Vital Signs Last Vital Signs Temp Pulse Resp BP Pulse Ox 97.4 F L 70 20 136/74 100 05/07/19 15:15 05/07/19 15:15 05/07/19 15:15 05/07/19 15:15 05/07/19 09:00 Initial Vital Signs Temp Pulse Resp BP Pulse Ox 97.8 F 62 18 117/73 100 05/05/19 10:45 05/05/19 10:45 05/05/19 10:45 05/05/19 10:45 05/05/19 10:45 - Physical Exam Comments: 05/05/19 11:47 GENERAL: very pleasant and well-appearing older adult male, A/Ox4, no distress, answers questions appropriately, has very good recollection of his medical course over the past month and very good insight, accompanied by HEENT: PERRLA, EOMI, moist mucous membranes NECK/BACK: no midline ttp, no spinal stepoff or deformity, no hematoma, full ROM , neck supple CARDIOVASCULAR: regular rate/rhythm, normal S1S2, no MGR, strong peripheral pulses, capillary refill <2 seconds, extremities wwp, no edema LUNGS/RESPIRATORY: no respiratory distress, CTAB GI/ABDOMEN: symmetric [id number], normoactive BS, soft, no ttp, no midline pulsatile masses : no CVA tenderness EXTREMITIES: no muscle atrophy, no acute deformity SKIN: warm and dry, no pallor, no jaundice, no rash, no bruising, no skin breakdown, no cuts, no lesions NEUROLOGICAL: GCS 15, CN II-XII grossly intact, 5/5 strength proximally and distally, no facial droop, normal [id number], no pronator drift, no truncal ataxia Heart Score/ECG Review #1 Sinus rhythm, rate of 61, normal axis and intervals, no ischemic ST-T changes ED Treatment Course - LABORATORY CBC & Chemistry Diagram: 05/05/19 11:35 05/07/19 05:50 - ADDITIONAL ORDERS Additional order review: 05/05/19 11:35 RBC 3.98 L MCV 82.8 MCHC 32.9 RDW 14.5 MPV 7.8 Neutrophils % 75.9 D Lymphocytes % 15.1 D Monocytes % 7.0 Eosinophils % 1.0 Basophils % 1.0 - Medications Given in the ED: ED Medications Discontinued Medications Generic Name Dose Route Start Last Admin Trade Name Freq PRN Reason Stop Dose Admin Carvedilol 6.25 mg 05/05/19 22:00 05/07/19 10:20 Coreg - PO 6.25 mg BID DORIS Administration Sodium Chloride 1,000 mls @ 83 mls/hr 05/05/19 18:00 05/06/19 22:04 Normal Saline - IV 05/07/19 06:03 83 mls/hr ASDIR DORIS Administration Levofloxacin 250 mg 05/06/19 09:45 05/07/19 06:23 Levaquin - PO 250 mg DAILY@0600 DORIS Administration Medical Decision Making - Medical Decision Making 05/05/19 11:49 Presyncope: Elderly Pt p/w abrupt transient near-LOC with, followed by spontaneous recovery, consistent with presyncope. Initial Vital Signs Temp Pulse Resp BP Pulse Ox 97.8 F 66 18 117/75 100 10/11/19 10:45 05/05/19 10:45 05/05/19 10:45 05/05/19 10:45 05/05/19 10:45 Exam: As noted in Physical Exam section. DDX IBNLT: this is very likely polypharmacy with BP-reducing medications ( patient is now on 4 that will reduce his BP). Other possibilities/contributing factors reflex, cardiovascular (arrhythmia, conduction abnormality, structural heart disease, etc), orthostatic hypotension (volume depletion e.g. hemorrhage/ vomiting/diarrhea/diuretics; drugs e.g. vasodilators/[id number]. W/U ordered: EKG, Labs as noted below TX ordered: IVF, O2, monitor EKG: Reviewed; results as noted in ECG Review section. Laboratory Tests 05/05/19 05/05/19 05/05/19 11:35 11:35 11:35 WBC 11.5 H RBC 3.98 L Hgb 10.8 L Hct 33.0 L MCV 82.8 MCH 27.2 MCHC 32.9 RDW 14.5 Plt Count 405 MPV 7.8 Absolute Neuts (auto) 8.7 H Neutrophils % 75.9 D Lymphocytes % 15.1 D Monocytes % 7.0 Eosinophils % 1.0 Basophils % 1.0 Nucleated RBC % 0 PT with INR INR PTT (Actin FS) Sodium 138 Potassium 4.6 Chloride 105 Carbon Dioxide 26 Anion Gap 7 L BUN 37.1 H Creatinine 2.0 H Est GFR (CKD-EPI)AfAm 36.49 Est GFR (CKD-EPI)NonAf 31.48 Random Glucose 88 Calcium 9.3 Total Bilirubin 0.3 AST 15 ALT 22 Alkaline Phosphatase 93 Creatine Kinase 134 Troponin I < 0.02 Total Protein 6.9 Albumin 3.6 05/05/19 11:35 WBC RBC Hgb Hct MCV MCH MCHC RDW Plt Count MPV Absolute Neuts (auto) Neutrophils % Lymphocytes % Monocytes % Eosinophils % Basophils % Nucleated RBC % PT with INR 12.70 INR 1.08 PTT (Actin FS) 37.1 H Sodium Potassium Chloride Carbon Dioxide Anion Gap BUN Creatinine Est GFR (CKD-EPI)AfAm Est GFR (CKD-EPI)NonAf Random Glucose Calcium Total Bilirubin AST ALT Alkaline Phosphatase Creatine Kinase Troponin I Total Protein Albumin 05/05/19 12:45 I spoke with Cady Gutierrez, patient going to IP Telemetry. Consult order placed to Dr. Enriquez for cardiology. Discharge - Discharge Information Problems reviewed: Yes Clinical Impression/Diagnosis: PAC (premature atrial contraction), Pre-syncope, LUPIS (acute kidney injury) Condition: Guarded Disposition: HOME - Admission Yes - Follow up/Referral - Patient Discharge Instructions - Post Discharge Activity
[2019-05-05 11:58] LABS: HEMOGLOBIN 10.8 GM/dL (11.7-16.9); LYMPH % 15.1 % (8-40); MCH 27.2 pg (25.7-33.7); MCHC 32.9 g/dl (32.0-35.9); MEAN CELL VOLUME 82.8 fl (80-96); MEAN PLT VOLUME 7.8 fl (7.5-11.1); NEUT % 75.9 % (42.8-82.8); PLATELET COUNT 405 K/MM3 (134-434); RBC 3.98 M/mm3 (4.00-5.60); RDW 14.5 % (11.9-15.9); WHITE BLOOD COUNT 11.5 K/mm3 (4.0-10.0)
[2019-05-05 12:07] LABS: ALBUMIN 3.6 g/dl (3.4-5.0); BILIRUBIN,TOTAL 0.3 mg/dL (0.2-1); BLOOD UREA NITROGEN 37.1 mg/dL (7-18); CALCIUM 9.3 mg/dL (8.5-10.1); POTASSIUM 4.6 mmol/L (3.5-5.1); TOT PROT 6.9 g/dl (6.4-8.2)
[2019-05-05 12:11] LABS: INR 1.08 (0.83-1.09); PROTHROMBIN TIME (PATIENT) 12.7 SEC (9.7-13.0)
[2019-05-05 12:13] LABS: ACTIVATED PTT 37.1 SECONDS (25.2-36.5)
--- NOTE | 2019-05-05 12:21 | PDOC ---
Documentation entered by Annabella Lang SCRIBE, acting as scribe for Jose G Metz MD. Jose G Metz MD: This documentation has been prepared by the Rickey jeong Adrianna, SCRIBE, under my direction and personally reviewed by me in its entirety. I confirm that the documentation accurately reflects all work, treatment, procedures, and medical decision making performed by me. Attending Attestation - Resident Resident Name: Magda Avelar - ED Attending Attestation I have performed the following: I have examined & evaluated the patient, The case was reviewed & discussed with the resident, I agree w/resident's findings & plan, Exceptions are as noted - HPI HPI: The patient is a 78 year old male, with a significant PMH of HTN, BPH, CKD, and recently diagnosed BPH with urethral stricture (s/p cystoscopy- after which time he was started on new medications), who presents to the ED BIBEMS for lightheadedness. Patient notes that over the past week, he has been lightheaded in the morning. He states the episodes last for 5 minutes at a time, and when he measures his BP following he is often hypotensive (baseline is 120s systolic , but has been 80s). This morning, patient felt lightheaded as if he was going to pass out. He was able to grab something to stabilize himself, and his caught him so he did not fall. Denies LOC or head contusion, but endorses blurred vision. Upon EMS arrival, patient was hypotensive. Patient has been on a multitude of new medications in the past month (2/2 multiple ER visits and recent BPH diagnosis), and believes this may be causal of his symptoms. Pt denies any associated chest pain, sob, hampton, palpitations, n/v, fever/chills, back pain, abd pain, leg swelling, cough, hemopysis, diarrhea, melena, bpr. Allergies: NKA, NKDA Surgical History: None reported Social History: Former smoker (quit >40 years ago) PCP: Dr. Valenzuela Skein Yarn Dyer: Dr. Bedolla Front Line Leader: Dr. Pacheco Urologist: Dr. Melgoza - Physicial Exam PE: 05/05/19 12:02 GENERAL: The patient is awake, alert, and fully oriented, Nontoxic - in no acute distress. HEAD: Normocephalic, atraumatic. EYES: extraocular movements intact, sclera anicteric, conjunctiva clear. ENT: Normal voice, Moist mucous membranes. NECK: Normal range of motion, supple LUNGS: Breath sounds equal, clear to auscultation bilaterally. No wheezes, no rhonchi, no rales. HEART: Regular rate and rhythm, normal S1 and S2 without murmur, rub or gallop. ABDOMEN: Soft, nontender, No guarding, no rebound. No CVA tenderness : campo in place EXTREMITIES: Normal range of motion, no edema. NEUROLOGICAL: No facial assymetry, Normal speech, PSYCH: Normal mood, normal affect. SKIN: Warm, Dry, normal turgor, - Medical Decision Making 05/05/19 11:37 78y M hx of htn (on ramapril and carvidilol), bph with urethral stricture s/p cystocopy on dutesteride presents with intermittent episodes of lightheaded ness over the past few days, today, took his BP and was noted to be abnormal and errored and he came to [facility] for evl[facility] because he felt very lightheaded and felt like passing ou and with blurry vision. symptoms has since resolved. No associated cp, sob, n/v, diaphoresis, abd pain, back pain, palpitations. ddx - persyncope - anemia, metabolic derangment, poly pharmacy, dhydration, arrythmia will place on night monitor will obtian ekg, cbc, cmp, trop will hydrate [place] reassess 05/05/19 13:41 on the pts monitor, there are intermittent pauses, suspect PAC with compensatory pause pts labs reviewed will admit for further management of presyncope Heart Score/ECG Review - ECG Impressions Comment:: 05/05/19 12:18 Twelve-lead EKG was performed and reviewed by me. There is normal sinus rhythm with a normal rate. rate of [address] changs suggive of acute ischemia normal axis
--- NOTE | 2019-05-05 13:58 | CON.CARD ---
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 It worsened when he stood up from the couch and he needed to grab a rail to stabilize himself and his caught him, so he did not fall. EMS notes that their initial BP measurement was hypotensive. He was seen here in the ED on 04/16/19 (for diarrhea thought d/t one of his new medications which he has since stopped, now resolved), 04/21 (for hematuria and dysuria dx with UTI and went home with a Syed and on ciprofloxacin), and finally admitted on 04/23/19-04/25/19 with UTI and hematuria ( got IV Levaquin and then discharged home with a Ysed catheter on PO Levaquin). He notes he has been doing better for the past 10 days since discharge and finished the Levaquin without issue. He has had several other episodes of milder lightheadedness this past week. Denies LOC, chest pain, dyspnea, palpitations, edema, orthopnea, PND, SALAZAR, neck pain, abdominal pain, hematuria, rectal bleeding, or other new issues. He expresses concern about all the medications he is on now, and believes this is causing his lightheadedness episodes. His BP has been measuring lower than normal lately too. He was already on carvedilol and ramipril for HTN and in March was started on silodosin, dutasteride. Allergies: NKA, NKDA Surgical History: None reported Social History: Former smoker (quit >40 years ago) PCP: Dr. Valenzuela Line Out Man: Dr. Bedolla Colorman: Dr. Pacheco Urologist: Dr. Melgoza - History Source History Provided By: Patient Limitations to Obtaining History: No Limitations - Past Medical History Cardio/Vascular: Yes: CHF, HTN Renal/: Yes: BPH - Alcohol/Substance Use Hx Alcohol Use: Yes (OCCASIONAL) - Smoking History Smoking history: Former smoker Have you smoked in the past 12 months: No If you are a former smoker, when did you quit?: 1971 Home Medications - Allergies Allergies/Adverse Reactions: Allergies Allergy/AdvReac Type Severity Reaction Status Date / Time No Known Allergies Allergy Verified 04/23/19 09:38 - Home Medications Home Medications: Ambulatory Orders Carvedilol [Coreg -] 25 mg PO BID 12/01/14 Ramipril 10 mg PO DAILY 12/01/14 Silodosin 8 mg PO DAILY 04/21/19 Dutasteride 0.5 mg PO DAILY 04/23/19 levoFLOXacin [Levaquin -] 500 mg PO DAILY #7 tablet 04/24/19 Review of Systems - Review of Systems Neurological: reports: Dizziness Vital Signs: Vital Signs Temperature 98.7 F 05/05/19 10:45 Pulse Rate 66 05/05/19 10:45 Respiratory Rate 18 05/05/19 10:45 Blood Pressure 117/75 05/05/19 10:45 O2 Sat by Pulse Oximetry (%) 100 05/05/19 10:45 Constitutional: Yes: No Distress, Calm Neck: Yes: Supple Respiratory: Yes: Regular, CTA Bilaterally Gastrointestinal: Yes: Normal Bowel Sounds, Soft Cardiovascular: Yes: Regular Rate and Rhythm JVD: No Carotid Bruit: No Heart Sounds: Yes: S1, S2 Edema: No - Other Data Labs, Other Data: CBC, BMP 05/05/19 11:35 05/05/19 11:35 INR, PTT INR 1.08 (0.83-1.09) 05/05/19 11:35 Troponin, BNP 05/05/19 11:35 Troponin I < 0.02 Troponin, BNP 05/05/19 11:35 Troponin I < 0.02 NSR @ 61 PAC NSR @ 69 PAV, PVC Ejection Fraction %: LVEF > or = 40 % Problem List - Problems (1) Nonischemic dilated cardiomyopathy Code(s): I42.0 - DILATED CARDIOMYOPATHY (2) LUPIS (acute kidney injury) Code(s): N17.9 - ACUTE KIDNEY FAILURE, UNSPECIFIED (3) PAC (premature atrial contraction) Code(s): I49.1 - ATRIAL PREMATURE DEPOLARIZATION (4) Pre-syncope Code(s): R55 - SYNCOPE AND COLLAPSE (5) Syed catheter in place Code(s): Z96.0 - PRESENCE OF UROGENITAL IMPLANTS (6) HTN (hypertension) Code(s): I10 - ESSENTIAL (PRIMARY) HYPERTENSION Assessment/Plan 08/22/2018 Echo: Borderline LV systolic function LVEF 50-55%, grade I diastolic dysfunction, normal RV size and fxn, mild AR, mild-mod MR, mild TR RVSP 30 mmHg 1. Orthostatic near syncope temporally related to silodosin initiation 2. Acute on CKD due to hemodynamic alterations 3. Labile HTN 4. BPH with badder outlet obstruction 5. PAC, PVC P:1. Check orthostatic hypotension, counselled on changing positions slowly 2. Decrease silodosin 4 qd and dose nightly, decrease carvedilol 6.25 bid and hold ramipril pending renal function stabilization 3. Judicious hydration with monitor renal recovery 4. Thank you for consultative opportunity
[2019-05-05] MEDS: SODIUM CHLORIDE 1,000 ML IV SCH (18:07)
[2019-05-05 21:25] VITALS: BMI 26.4
[2019-05-05] MEDS ORDERED: CARVEDILOL 25 MG TABLET (FP) PO SCH (22:00)
[2019-05-05] MEDS: CARVEDILOL 6.25 MG TABLET (FP) PO SCH (22:31)
[2019-05-06] MEDS: CARVEDILOL 6.25 MG TABLET (FP) PO SCH ×2 (09:18→22:03)
[2019-05-06 09:24] LABS: BLOOD UREA NITROGEN 33.4 mg/dL (7-18); CALCIUM 8.9 mg/dL (8.5-10.1); CREATININE 1.6 mg/dL (0.55-1.3); POTASSIUM 4.3 mmol/L (3.5-5.1)
--- NOTE | 2019-05-06 09:39 | HP ---
DATE OF ADMISSION: 05/05/2019 HISTORY: This is a 78-year-old male known to have hypertension, BPH. Yesterday while he was in the bathroom, had a near syncopal episode and called the ambulance and came to the emergency room. I saw him in the emergency room yesterday. Recently he had problem with passing urine. Evaluation by Dr. Melgoza. He has a Syed. Scheduled for TURP. His candy separator hard is Dr. Enriquez. This morning he does not have any complaints. He is monitored in telemetry. He lives with his family, his and children. PHYSICAL EXAMINATION: Vital Signs: His blood pressure is 110/70, pulse 72, respirations 20, temperature 98. HEENT: Unremarkable. Neck: Supple. No JVD. Lungs: Clear. Heart: S1, S2 normal. No S3, S4. Abdomen: Soft, nontender. Genitourinary: Has the Syed and the urine is clear. LABORATORY REPORTS: Sodium 138, potassium 4.6, chloride 105, CO2 is 26, BUN is 37, creatinine 2. LFTs are normal. Troponin is negative. CPK not elevated. INR 1.08, PTT 37, PT 12. WBC 11.5, hemoglobin 10.8. IMPRESSION: 1. Benign prostatic hypertrophy. 2. Syncope. 3. Cardiac arrhythmia. PLAN: We will follow with Cardiology. Daniel [id number]
[2019-05-06] MEDS ORDERED: RAMIPRIL 2.5 MG CAPSULE (FP) PO SCH (10:00)
--- NOTE | 2019-05-06 12:41 | PN ---
Progress Note, Physician History of Present Illness: Positional dizziness resolving with IVF and medication adjustments. No longer orthostatic. - Current Medication List Current Medications: Active Medications Carvedilol (Coreg -) 6.25 mg PO BID [facility] Last Admin: 05/06/19 09:18 Dose: 6.25 mg Sodium Chloride (Normal Saline -) 1,000 mls @ 83 mls/hr IV ASDIR [facility] Stop: 05/07/19 06:03 Last Admin: 05/05/19 18:07 Dose: 83 mls/hr Levofloxacin (Levaquin -) 250 mg PO DAILY@0600 [facility] Last Admin: 05/06/19 09:45 Dose: 250 mg - Objective Vital Signs: Vital Signs Temperature 98.1 F 05/06/19 02:00 Pulse Rate 85 05/06/19 02:00 Respiratory Rate 20 05/06/19 02:00 Blood Pressure 119/70 05/06/19 10:00 O2 Sat by Pulse Oximetry (%) 100 05/05/19 20:49 Constitutional: Yes: No Distress, Calm, Thin Neck: Yes: Supple Cardiovascular: Yes: Regular Rate and Rhythm Respiratory: Yes: Regular, CTA Bilaterally Gastrointestinal: Yes: Normal Bowel Sounds, Soft Edema: No Labs: CBC, BMP 05/05/19 11:35 05/06/19 08:00 INR, PTT INR 1.08 (0.83-1.09) 05/05/19 11:35 - ....Imaging EKG: Report Reviewed (Tele: NSR occ PAC. PVC) Problem List - Problems (1) Nonischemic dilated cardiomyopathy Code(s): I42.0 - DILATED CARDIOMYOPATHY (2) LUPIS (acute kidney injury) Code(s): N17.9 - ACUTE KIDNEY FAILURE, UNSPECIFIED (3) PAC (premature atrial contraction) Code(s): I49.1 - ATRIAL PREMATURE DEPOLARIZATION (4) Pre-syncope Code(s): R55 - SYNCOPE AND COLLAPSE (5) Syed catheter in place Code(s): Z96.0 - PRESENCE OF UROGENITAL IMPLANTS (6) HTN (hypertension) Code(s): I10 - ESSENTIAL (PRIMARY) HYPERTENSION Assessment/Plan 08/22/2018 Echo: Borderline LV systolic function LVEF 50-55%, grade I diastolic dysfunction, normal RV size and fxn, mild AR, mild-mod MR, mild TR RVSP 30 mmHg 1. Orthostatic near syncope temporally related to silodosin initiation resolving 2. Acute on CKD due to hemodynamic alterations improving 3. Labile HTN 4. BPH with badder outlet obstruction 5. PAC, PVC P:1. Counselled on changing positions slowly 2. Decrease silodosin 4 qd (renal dosing) and dose nightly, decreased carvedilol 6.25 bid and held ramipril pending renal function stabilization 3. Judicious hydration with monitor renal recovery, started renal dose Levaquin prior to TURP, may proceed from CV-standpoint w/o further testing 4. D/c planning in AM with f/u with Dr. Enriquez
--- NOTE | 2019-05-06 19:55 | CON.NEP ---
Consult Consult Specialty:: Nephrology - History of Present Illness History of Present Illness: 78y M presents with intermittent episodes of lightheaded ness over the past few days, today, took his BP and was noted to be abnormal and errored and he came to [facility] for evluation because he felt very lightheaded and felt like passing ou and with blurry vision. symptoms has since resolved. No associated cp, sob, n /v, diaphoresis, abd pain, back pain, palpitations. Phx of htn (on ramapril and carvidilol), bph with urethral stricture s/p cystocopy on dutesteride w/u for pre-syncope - anemia, metabolic derangment, poly pharmacy, dhydration, arrythmia CBC, BMP 05/05/19 11:35 05/06/19 08:00 - Past Medical History Cardio/Vascular: Yes: CHF, HTN Renal/: Yes: BPH - Alcohol/Substance Use Hx Alcohol Use: Yes (OCCASIONAL) - Smoking History Smoking history: Former smoker Have you smoked in the past 12 months: No If you are a former smoker, when did you quit?: 1972 Home Medications - Allergies Allergies/Adverse Reactions: Allergies Allergy/AdvReac Type Severity Reaction Status Date / Time No Known Allergies Allergy Verified 04/23/19 09:38 - Home Medications Home Medications: Ambulatory Orders Carvedilol [Coreg -] 25 mg PO BID 12/01/14 Ramipril 10 mg PO DAILY 12/01/14 Silodosin 8 mg PO DAILY 04/21/19 Dutasteride 0.5 mg PO DAILY 04/23/19 levoFLOXacin [Levaquin -] 500 mg PO DAILY #7 tablet 04/24/19 Nephrology Consult - Height Height: 6 ft 2 in - Weight Weight: 206 lb 4.8 oz - BMI Body Mass Index (BMI): 26.4 - Lab Results CBC,BMP: CBC, BMP 05/05/19 11:35 05/06/19 08:00 Anion Gap: Anion Gap Anion Gap 6 MMOL/L (8-16) L 05/06/19 08:00 - Physical Examination Vital Signs: Vital Signs Temperature 98.1 F 05/06/19 17:00 Pulse Rate 66 05/06/19 17:00 Respiratory Rate 20 05/06/19 17:00 Blood Pressure 119/70 05/06/19 17:00 O2 Sat by Pulse Oximetry (%) 100 05/05/19 20:49 Assessment/Plan 08/22/2018 Echo: Borderline LV systolic function LVEF 50-55%, grade I diastolic dysfunction, normal RV size and fxn, mild AR, mild-mod MR, mild TR RVSP 30 mmHg 1. Orthostatic near syncope temporally related to silodosin initiation resolving 2. Acute on CKD due to hemodynamic alterations improving 3. Labile HTN 4. BPH with badder outlet obstruction 5. PAC, PVC P:1. Counselled on changing positions slowly 2. Decrease silodosin 4 qd (renal dosing) and dose nightly, decreased carvedilol 6.25 bid and held ramipril pending renal function stabilization 3. Judicious hydration with monitor renal recovery, started renal dose Levaquin prior to TURP, may proceed from CV-standpoint w/o further testing 4. D/c planning in AM with f/u with Dr. Enriquez
[2019-05-06] MEDS: SODIUM CHLORIDE 1,000 ML IV SCH (22:04)
[2019-05-07 07:14] LABS: BLOOD UREA NITROGEN 32.4 mg/dL (7-18); CALCIUM 8.6 mg/dL (8.5-10.1); CREATININE 1.6 mg/dL (0.55-1.3); POTASSIUM 4.1 mmol/L (3.5-5.1)
--- NOTE | 2019-05-07 08:28 | EKG ---
Test Reason : Blood Pressure : / mmHG Vent. Rate : 061 BPM Atrial Rate : 061 BPM P-R Int : 178 ms QRS Dur : 094 ms QT Int : 384 ms P-R-T Axes : 063 053 062 degrees QTc Int : 386 ms SINUS RHYTHM WITH PREMATURE ATRIAL COMPLEXES OTHERWISE NORMAL ECG WHEN COMPARED WITH ECG OF 21-APR-2019 12:30, PREMATURE VENTRICULAR COMPLEXES ARE NO LONGER PRESENT NONSPECIFIC T WAVE ABNORMALITY NO LONGER EVIDENT IN INFERIOR LEADS QT HAS SHORTENED Confirmed by Nga Sullivan ([id number]) on 05/07/2019 8:28:36 AM Referred By: Confirmed By:Nga Sullivan
[2019-05-07] MEDS: CARVEDILOL 6.25 MG TABLET (FP) PO SCH (10:20)
--- NOTE | 2019-05-07 10:40 | PN ---
Progress Note (short form) - Note Progress Note: Chief Complaint: Events noted, notes reviewed, no further dizziness, denies any chest discomfort or dyspnea, sinus rhythm is noted History of Present Illness: Seen and examined on telemetry. Events noted, notes reviewed, no further dizziness, denies any chest discomfort or dyspnea, sinus rhythm is noted - Current Medication List Current Medications: Active Medications Current Medications Carvedilol (Coreg -) 6.25 mg PO BID [facility] Last Admin: 05/07/19 10:20 Dose: 6.25 mg Levofloxacin (Levaquin -) 250 mg PO DAILY@0600 [facility] Last Admin: 05/07/19 06:23 Dose: 250 mg - Review of Systems Constitutional: denies: Chills, Fever Cardiovascular: As noted above Respiratory: denies: Cough or Hemoptysis Gastrointestinal: denies: Abdominal Pain, Constipation, Diarrhea, Melena, Nausea , Rectal Bleeding, Vomiting Musculoskeletal: denies: Back Pain Neurological: denies: Unsteady Gait, Weakness. denies: Dizziness, Headache, Seizure, Syncope - Objective Vital Signs: Last Vital Signs Temp Pulse Resp BP Pulse Ox 97.9 F 70 20 126/74 100 05/07/19 01:54 05/07/19 06:00 05/07/19 09:00 05/07/19 06:00 05/07/19 09:00 Intake & Output 05/04/19 05/05/19 05/06/19 05/07/19 23:59 23:59 23:59 23:59 Intake Total 486 1545 996 Output Total 2420 Balance 486 -875 996 Weight 206 lb 4.8 oz 206 lb 4.8 oz HEENT: Atraumatic Neck: Supple Negative JVD Cardiovascular: S1 S2 Regular Rate and Rhythm Respiratory: Clear to A&P Bilaterally Gastrointestinal: Soft Benign Normal Bowel Sounds Ext: Negative Edema Labs: CBC, BMP 05/05/19 11:35 05/07/19 05:50 Assessment/Plan ASSESSMENT: 1. Orthostatic near syncope/hypotension temporally related to Silodosin initiation resolved 2. Acute on CKD due to hemodynamic alterations improving 3. Systolic/diastolic LV dysfunction with class 0 NYHA classifcation LV failure 4. HTN, history of labile hypertension 5. History of PAC's and PVC's 6. PVBPH with badder outlet obstruction PLAN: 1. Counselled preventative measures for the above noted presentation 2. Continue Carvedilol at 6.25 twice daily and dose titration as needed 3. Continue to withhold Ramipril pending renal function stabilization 4. D/C home as per the primary team Yohan Enriquez MD
--- NOTE | 2019-05-07 12:53 | DS ---
Physical Examination Vital Signs: Vital Signs Temperature 97.9 F 05/07/19 01:54 Pulse Rate 75 05/07/19 11:53 Respiratory Rate 20 05/07/19 11:53 Blood Pressure 130/78 05/07/19 11:53 O2 Sat by Pulse Oximetry (%) 100 05/07/19 09:00 Findings/Remarks: Admitted with hypotention Meds reduced ,cleared by cardiology for discharge Go home with campo Constitutional: Yes: No Distress Eyes: Yes: WNL HENT: Yes: WNL Neck: Yes: WNL Cardiovascular: Yes: WNL Respiratory: Yes: WNL Gastrointestinal: Yes: WNL ...Rectal Exam: Yes: Deferred Renal/: Yes: WNL, Campo Present Musculoskeletal: Yes: WNL Edema: No Neurological: Yes: Alert ...Motor Strength: WNL Labs: CBC, BMP 05/05/19 11:35 05/07/19 05:50 Discharge Summary Problems reviewed: Yes Reason For Visit: ACUTE KIDNEY INJURY, PRE SYNCOPE, HYPERTENSION Current Active Problems LUPIS (acute kidney injury) (Acute) Nonischemic dilated cardiomyopathy (Acute) PAC (premature atrial contraction) (Acute) Pre-syncope (Acute) Condition: Guarded - Instructions Referrals: Mark Valenzuela MD [Primary Care Provider] - - Home Medications Comprehensive Discharge Medication List: Ambulatory Orders Carvedilol [Coreg -] 25 mg PO BID 12/01/14 Ramipril 10 mg PO DAILY 12/01/14 Silodosin 8 mg PO DAILY 04/21/19 Dutasteride 0.5 mg PO DAILY 04/23/19 levoFLOXacin [Levaquin -] 500 mg PO DAILY #7 tablet 04/24/19
[2019-05-07 15:25] VITALS: BP 136/74; PULSE 70; TEMP 97.4
--- NOTE | 2019-05-07 16:36 | PN ---
Progress Note (short form) - Note Progress Note: PROBLEMS LUPIS (acute kidney injury) (Acute) Nonischemic dilated cardiomyopathy (Acute) PAC (premature atrial contraction) (Acute) Pre-syncope (Acute) Last Vital Signs Temp Pulse Resp BP Pulse Ox 97.4 F L 70 20 136/74 100 05/07/19 15:15 05/07/19 15:15 05/07/19 15:15 05/07/19 15:15 05/07/19 09:00 Lungs clear Heart reg Abd soft Ext no edema CBC, BMP 05/05/19 11:35 05/07/19 05:50 IMP- s/p lupis/prerenal renal function back to baseline Plan- agree with d/c plan
== END 2019-05-07 15:48 | disposition home or self-care (01) | DRG 683 ==
LOC: SUPCPDRO 10:44 → JER 10:44 → JERBED 12:42 → J4W 20:43
PROVIDERS: ADMIT Internal Medicine; ATTEND Internal Medicine
DX: N17.9 Acute kidney failure, unspecified (principal); I42.8 Other cardiomyopathies; N13.8 Other obstructive and reflux uropathy; N40.0 Benign prostatic hyperplasia without lower urinary tract symptoms; Z96.0 Presence of urogenital implants; I49.1 Atrial premature depolarization; R55 Syncope and collapse
CPT/HCPCS: 36415; 71046-TC-FY; 80048; 80053; 82550; 82962; 84484; 85025; 85610; 85730; 86850; 86900; 86901; 93005; 93010; 99284-25; J7030

== ENCOUNTER 2019-05-10 10:46 | Day surgery (SDC) | payer OTHER ==
[2019-05-09 14:24] VITALS: BMI 26.4
[2019-05-10] MEDS ORDERED: MIDAZOLAM HCL 2 MG/2 ML SINGLE DOSE VIAL ONE ×3 (13:17→13:59)
[2019-05-10] MEDS ORDERED: ceFAZolin SODIUM 1 GM VIAL IVPB ONE (13:20)
[2019-05-10] MEDS ORDERED: PROMETHAZINE HCL 25 MG/1 ML VIAL IVPUSH PRN (14:19)
[2019-05-10] MEDS ORDERED: oxyCODONE HCL 5 MG TABLET PO PRN ×3 (14:19→14:56)
[2019-05-10] MEDS ORDERED: ONDANSETRON 4 MG/2 ML VIAL IVPUSH PRN (14:19)
[2019-05-10] MEDS ORDERED: TAMSULOSIN HCL 0.4 MG CAP PO ONE (14:28)
[2019-05-10] MEDS ORDERED: ACETAMINOPHEN 325 MG TABLET (FP) PO PRN ×2 (14:28)
[2019-05-10] MEDS ORDERED: CARVEDILOL 25 MG TABLET (FP) PO ONE (14:34)
[2019-05-10] MEDS ORDERED: ZOLPIDEM TARTRATE 5 MG TABLET PO PRN (14:35)
--- NOTE | 2019-05-10 14:42 | OP ---
Operative Note - Note: Operative Date: 05/10/19 Pre-Operative Diagnosis: bph with luts, rec. urinary retention and uti Operation: turp/tuvp Findings: trilobar prostate hypertrophy and gr-2-3 bladder trabeculation Post-Operative Diagnosis: Same as Pre-op Surgeon: Cordell Villasenor Anesthesia: Spinal Specimens Removed: prostate chips Estimated Blood Loss (mls): 50 Drains & Tubes with Location: [address] 30cc campo with cbi Drains, Volume Out (mls): 0 Blood Volume Replaced (mls): 0 Fluid Volume Replaced (mls): 0 Operative Report Dictated: Yes
--- NOTE | 2019-05-10 17:18 | CONS ---
DATE OF CONSULTATION: 05/10/2019 HISTORY OF PRESENT ILLNESS: The patient is a 78-year-old male with a history of high blood pressure, chronic kidney disease, benign prostatic hypertrophy and recurrent bouts of urinary retention associated with gross hematuria and urosepsis. The patient underwent a cystoscopy four weeks earlier, at which time a urethral stricture was found. Trilobar hypertrophy of the prostate was also seen. The bladder also revealed grade 2 to 3 trabeculation. The patient does complain of severe prostatism including frequency, urgency, terminal dribbling and feelings of incomplete bladder emptying. He is a former smoker. ALLERGIES: Presently, he denies any allergies. MEDICATIONS: He is taking Coreg, Ramipril, Rapaflo, ELIGARD and Levaquin. He had his cardiology clearance recently. He was diagnosed with acute on chronic kidney disease due to hemodynamic alterations. He also has labile hypertension and symptomatic obstructive benign prostatic hypertrophy. The patient will undergo a cystourethroscopy and vaporization of the prostate. This was explained to the patient in detail and he agrees. Daniel [id number]
[2019-05-10] MEDS: CARVEDILOL 6.25 MG TABLET (FP) PO SCH (21:50)
[2019-05-10] MEDS: TAMSULOSIN HCL 0.4 MG CAP PO SCH (21:50)
[2019-05-10] MEDS: CEPHALEXIN MONOHYDRATE 500 MG CAPSULE (UD) PO SCH (21:52)
[2019-05-10] MEDS ORDERED: DOCUSATE SODIUM 100 MG CAPSULE (FP) PO SCH (22:00)
[2019-05-11] MEDS: CEPHALEXIN MONOHYDRATE 500 MG CAPSULE (UD) PO SCH (06:45)
[2019-05-11 09:11] VITALS: BP 138/67; PULSE 95; TEMP 98.1
[2019-05-11] MEDS ORDERED: RAMIPRIL 5 MG CAPSULE (FP) PO SCH (10:00)
[2019-05-11] MEDS: TAMSULOSIN HCL 0.4 MG CAP PO SCH (10:59)
[2019-05-11] MEDS: CARVEDILOL 6.25 MG TABLET (FP) PO SCH (10:59)
--- NOTE | 2019-05-15 15:54 | OP ---
DATE OF OPERATION: 05/10/2019 PREOPERATIVE DIAGNOSIS: Benign prostatic hypertrophy with recurrent urinary tract infections, large postvoid residual. POSTOPERATIVE DIAGNOSIS: Benign prostatic hypertrophy with recurrent urinary tract infections, large postvoid residual. OPERATIVE PROCEDURE: Cystourethroscopy, transurethral resection and transurethral vaporization of prostate. ANESTHESIA: Spinal. DESCRIPTION OF PROCEDURE: Under above stated anesthesia, patient was prepped and draped in the usual sterile manner. He was placed in the dorsal lithotomy position. External genitalia appeared to be normal. Cystoscopy revealed trilobar hypertrophy of the prostate. There was lateral lobe kissing. Verumontanum was inflamed. The distance between the and the bladder neck was 7 cm. The bladder was entered. This revealed a grade 2 to 3 trabeculation and no lesions were noted, no calculi were seen. Ureteral orifices were within normal limits with efflux is clear urine. Dome and lateral glez were clear. Bipolar resectoscope was introduced, and resection of the prostate was commenced at the 6 o'clock position of the right lateral lobe. This was carried on up to the 12 o'clock position. was done to the left lateral lobe, lastly the median lobe was resected. Hemostasis was secured with electrocoagulation. Prostate chips were evacuated with an Fundamo (Proprietary) evacuator. VaporTrode was then introduced and excess prostate tissue was vaporized. Again, the right lobe was 6 o'clock to 12 o'clock position, left lobe was 6 o'clock to 12 o'clock position. Lastly the median lobe was vaporized. No active bleeding was noted. The bladder was emptied, the scope was removed. A 24 [place] 3-way, 30 mL Syed was inserted. This was connected to continuous bladder irrigation. The patient tolerated the procedure well. He returned to the recovery room in good condition. Daniel [id number]
--- NOTE | 2019-05-15 17:35 | PATH ---
Surgical Pathology Report Patient Name: [facility]. Rec. #: [id number] /Age/Gender: 1940 (Age: 78) / M Account: [id number] Location: AMBULATORY SURG Taken: 05/10/2019 Received: 05/11/2019 Reported: 05/15/2019 Physicians: Cordell Villasenor M.D. Specimen(s) Received PROSTATE CHIPS Clinical History Hypertrophy of prostate Final Diagnosis PROSTATE TISSUE, TRANSURETHRAL RESECTION OF THE PROSTATE: BENIGN PROSTATE TISSUE WITH GLANDULAR AND STROMAL HYPERPLASIA, ACUTE AND CHRONIC PROSTATITIS. ADJACENT UROTHELIAL MUCOSA WITH CHRONIC INFLAMMATION. Electronically Signed Gabriela Hdez M.D. Gross Description Received in formalin labeled "prostate tissue," is a 5 g, 5.5 x 4.8 x 0.5 cm aggregate of multiple andres, irregular, rubbery portions of tissue, consistent with prostate chips. The specimen is entirely submitted in 6 cassettes. /05/11/2019 saudi05/11/2019
== END 2019-05-11 14:00 | disposition home or self-care (01) ==
LOC: JASU-SURG 10:46 → JASUSAT 10:46 → J6S 16:54 → JASUSAT 05-11 14:00
PROVIDERS: ATTEND Urology
PROC: 0VT08ZZ Resection of Prostate, Via Natural or Artificial Opening Endoscopic (ICD-10-PCS; 2019-05-10)
PROC: 0V508ZZ Destruction of Prostate, Via Natural or Artificial Opening Endoscopic (ICD-10-PCS; principal; 2019-05-10 12:30)
DX: N40.0 Benign prostatic hyperplasia without lower urinary tract symptoms (principal); Z87.440 Personal history of urinary (tract) infections; N39.43 Post-void dribbling
CPT/HCPCS: 88305-TC; 94010; 94760

== ENCOUNTER 2019-07-26 10:12 | Emergency (ER) | payer OTHER ==
--- NOTE | 2019-07-26 10:18 | PDOC ---
History of Present Illness - General Stated Complaint: Blood Pressure Problem Time Seen by Provider: 07/26/19 10:17 - History of Present Illness Initial Comments: 07/26/19 10:18 78 yo M, with PMH of HTN, BPH, and recent campo catheterization 2/2 BPH/bladder stricture who presents with hypotension as measured on his home blood pressure monitor after a recent medication change ED Course: UA with uti LUPIS - at baseline Past History - Past Medical History Allergies/Adverse Reactions: Allergies Allergy/AdvReac Type Severity Reaction Status Date / Time No Known Allergies Allergy Verified 07/26/19 10:24 Home Medications: Ambulatory Orders Bethanechol Chloride [Urecholine -] 5 mg PO TID 07/26/19 Carvedilol [Coreg -] 25 mg PO BID 07/26/19 Valsartan 80 mg PO DAILY 07/26/19 Anemia: No Asthma: No Cancer: No Cardiac Disorders: No CVA: No COPD: No CHF: No Dementia: No Diabetes: No GI Disorders: No Disorders: Yes (UTI March 2019) HTN: Yes Hypercholesterolemia: Yes Liver Disease: No Seizures: No Thyroid Disease: No - Immunization History Immunization Up to Date: Yes - Psycho Social/Smoking Cessation Hx Smoking History: Former smoker Have you smoked in the past 12 months: No If you are a former smoker, when did you quit?: 1972 Hx Alcohol Use: Yes (OCCASIONAL) Drug/Substance Use Hx: No Substance Use Type: None Hx Substance Use Treatment: No ED Treatment Course - LABORATORY CBC & Chemistry Diagram: 07/26/19 10:45 07/26/19 10:45 Discharge - Discharge Information Problems reviewed: Yes Clinical Impression/Diagnosis: Hypotension Condition: Stable Disposition: HOME - Admission No - Follow up/Referral Referrals: Cady Gutierrez MD [Primary Care Provider] - - Patient Discharge Instructions Patient Printed Discharge Instructions: DI for High Blood Pressure, DI for Hypotension Additional Instructions: You were seen in the ER for complaints of low blood pressure Your labs Your Police Lieutenant was called and recommended that you stop taking the valsartan until you can see him in the office . Return to the ED if you experience any chest pain, shortness of breath, worsening low blood pressure, nausea, lightheadedness, loss of consciousness or any other concerning symptoms. - Post Discharge Activity
[2019-07-26 10:24] VITALS: PULSE 63; TEMP 97.9; BMI 26.4
[2019-07-26 11:07] VITALS: BP 169/84
[2019-07-26 11:13] LABS: EOS % 1.7 % (0-4.5); HEMATOCRIT 34.7 % (35.4-49); HEMOGLOBIN 11.2 GM/dL (11.7-16.9); LYMPH % 21.1 % (8-40); MCH 27.4 pg (25.7-33.7); MCHC 32.4 g/dl (32.0-35.9); MEAN CELL VOLUME 84.5 fl (80-96); MEAN PLT VOLUME 7.6 fl (7.5-11.1); NEUT % 69.2 % (42.8-82.8); PLATELET COUNT 308 K/MM3 (134-434); RDW 14.3 % (11.9-15.9); WHITE BLOOD COUNT 8.9 K/mm3 (4.0-10.0)
[2019-07-26 11:44] LABS: EPI CELLS 1.8 /HPF (0-5/HPF); HYALINE CASTS 1 /lpf (0-8); URINE APPEARANCE CLEAR; URINE BACTERIA 2.7 /hpf (NEGATIVE); URINE BILIRUBIN NEGATIVE (NEGATIVE); URINE COLOR YELLOW; URINE GLUCOSE (UA) NEGATIVE (NEGATIVE); URINE KETONE NEGATIVE (NEGATIVE); URINE LEUK ESTERASE 2+ (NEGATIVE); URINE NITRITE NEGATIVE (NEGATIVE); URINE PROTEIN NEGATIVE (NEGATIVE); URINE RBC 3 /hpf (0-4); URINE UROBILINOGEN 0.2 mg/dL (0.2-1.0); URINE WBC 19 /hpf (0-5)
[2019-07-26 11:57] LABS: ALBUMIN 3.8 g/dl (3.4-5.0); BILIRUBIN,TOTAL 0.2 mg/dL (0.2-1); BLOOD UREA NITROGEN 37.3 mg/dL (7-18); CREATININE 1.7 mg/dL (0.55-1.3); POTASSIUM 4.2 mmol/L (3.5-5.1); TOT PROT 7.3 g/dl (6.4-8.2)
--- NOTE | 2019-07-26 17:29 | EKG ---
Test Reason : Blood Pressure : / mmHG Vent. Rate : 058 BPM Atrial Rate : 058 BPM P-R Int : 184 ms QRS Dur : 096 ms QT Int : 406 ms P-R-T Axes : 065 024 054 degrees QTc Int : 398 ms SINUS BRADYCARDIA OTHERWISE NORMAL ECG WHEN COMPARED WITH ECG OF 05-MAY-2019 11:04, PREMATURE ATRIAL COMPLEXES ARE NO LONGER PRESENT BASELINE ARTIFACT Confirmed by ALFONSO MARIE, MORGAN ([id number]) on 07/26/2019 5:29:06 PM Referred By: Confirmed By:MORGAN HAMILTON MD
== END 2019-07-26 12:18 | disposition home or self-care (01) ==
LOC: JER 10:12
DX: I95.9 Hypotension, unspecified (principal); Z87.891 Personal history of nicotine dependence; E78.00 Pure hypercholesterolemia, unspecified
CPT/HCPCS: 36415; 80053; 81003; 84484; 85025; 93005; 93010; 99283-25

== ENCOUNTER 2020-04-03 14:21 | Emergency (ER) | payer OTHER ==
--- NOTE | 2020-04-03 14:55 | PDOC ---
History of Present Illness - General Chief Complaint: CVA/TIA Stated Complaint: Weakness Time Seen by Provider: 04/03/20 14:47 History Source: Patient Exam Limitations: No Limitations - History of Present Illness Initial Comments: 04/03/20 14:55 Juan M Winn is a 79M with PMH HTN, BPH s/p prostate resection, presents with sensation of numbness/tingling in hands and feet. Seven months ago stopped drinking caffeinated coffee in an effort to be healthy. Has been otherwise healthy since. Yesterday and today ran out of decaf coffee, drank 3 cups per day of this 's caffeinated coffee. 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 Checked BP at home and systolic 160s, checks da bib and usually 120/70 on home Coreg. Got worried about HTN and tingling and came in for evaluation. Denies N/V, chest pain, SOB, C/D, abd pain, vision changes, dizziness, palpitations. No cardiac stenting or MD, no AFIB, annual ECHO with cards with EF 55%. Meds: Coreg 25mg BID, Bethanicol PMD Matt [facility]? Past History - Medical History Allergies/Adverse Reactions: Allergies Allergy/AdvReac Type Severity Reaction Status Date / Time No Known Allergies Allergy Verified 04/03/20 14:45 Home Medications: Ambulatory Orders Bethanechol Chloride [Urecholine -] 5 mg PO TID 07/26/19 Carvedilol [Coreg -] 25 mg PO BID 07/26/19 Anemia: No Asthma: No Cancer: No Cardiac Disorders: No CVA: No COPD: No CHF: No Dementia: No Diabetes: No GI Disorders: No Disorders: Yes (UTI March 2019) HTN: Yes Hypercholesterolemia: Yes Liver Disease: No Seizures: No Thyroid Disease: No - Immunization History Immunization Up to Date: Yes - Psycho-Social/Smoking History Smoking History: Never smoked Have you smoked in the past 12 months: No If you are a former smoker, when did you quit?: 1972 - Substance Abuse Hx (Audit-C & DAST Scrn) How often the patient has a drink containing alcohol: Never Score: In Men: 4 or > Positive; In Women: 3 or > Positive: 0 Screen Result (Pos requires Nsg. Audit-10AR): Negative In the last yr the pt used illegal drug/Rx for NonMed reason: No Score: Yes response is considered Positive: 0 Screen Result (Positive result requires Nsg. DAST-10): Negative Review of Systems - Review of Systems Able to Perform ROS?: Yes Constitutional: No: Symptoms Reported HEENTM: No: Symptoms Reported Respiratory: No: Symptoms reported Cardiac (ROS): No: Symptoms Reported ABD/GI: No: Symptoms Reported : No: Symptoms Reported Musculoskeletal: No: Symptoms Reported Integumentary: No: Symptoms Reported Neurological: Yes: Tingling Endocrine: No: Symptoms Reported Hematologic/Lymphatic: No: Symptoms Reported All Other Systems: Reviewed and Negative *Physical Exam - Vital Signs Last Vital Signs Temp Pulse Resp BP Pulse Ox 97.1 F L 70 20 160/58 L 99 04/03/20 14:41 04/03/20 14:41 04/03/20 14:41 04/03/20 14:41 04/03/20 14:41 - Physical Exam General Appearance: Yes: Nourished, Appropriately Dressed. No: Apparent Distress HEENT: positive: EOMI, CHRISTINA, Pharynx Normal, Hearing Grossly Normal. negative: Scleral Icterus (R), Scleral Icterus (L), Hearing Decreased Neck: positive: Trachea midline, Normal Thyroid, Supple. negative: Tender, Rigid, Lymphadenopathy (R), Lymphadenopathy (L) Respiratory/Chest: positive: Lungs Clear, Normal Breath Sounds. negative: Chest Tender, Respiratory Distress, Accessory Muscle Use, Crackles, Rales, Rhonchi, Stridor, Wheezing Cardiovascular: positive: Regular Rhythm, Tachycardia. negative: Murmur Gastrointestinal/Abdominal: positive: Normal Bowel Sounds, Flat, Soft. negative: Tender, Organomegaly, Pulsatile Mass, Protuberent, Guarding, Rebound, Tenderness Musculoskeletal: positive: Normal Inspection. negative: CVA Tenderness, Decreased Range of Motion, Vertebral Tenderness Extremity: positive: Normal Capillary Refill, Normal Inspection, Normal Range of Motion, Pelvis Stable. negative: Tender, Pedal Edema, Swelling, Calf Tenderness Integumentary: positive: Normal Color, Dry, Warm. 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 Most likely related to caffeine, but will evaluate for metabolic or cardiac causes. Ordering CBC/CM P/CP/TSH/ECG/CXR. If normal, likely eligible for discharge home with PMD f/u. 04/03/20 16:37 ECG sinus rhythm with bigeminy PVC, HR 66, QTc 461, no STANISLAV/D or TWI, not concerning for an emergent pathology, possibly due to caffeine effect. Prior ECG sinus bradycardia with HR 58. CXR unremarkable for new pathology. Labs notable for: - CBC WNL - Cr 1.5, WNL for patient, known history of CKD - trop negative - BMP WNL 04/03/20 16:54 Spoke to Sophie, would like a callback at #[phone] if patient is being discharged home so she can pick him up. 04/03/20 17:54 Stable for discharge home with close cardiology and PMD f/u. Discussed Cr with patient who reports 1.5 is consistent with his last nephro visit and is normal. Patient will make appointment with cards for bigeminy, copy of ECG given for follow-up. Discharge - Discharge Information Problems reviewed: Yes Clinical Impression/Diagnosis: Tingling in extremities CKD (chronic kidney disease) Qualifiers: Chronic kidney disease stage: stage 3 (moderate) Qualified Code(s): N18.3 - Chronic kidney disease, stage 3 (moderate) Condition: Stable Disposition: HOME - Admission No - Follow up/Referral Referrals: Cady Gutierrez MD [Primary Care Provider] - - Patient Discharge Instructions Patient Printed Discharge Instructions: Decreasing Your Caffeine Intake Additional Instructions: Today you were evaluated for high blood pressure and tingling in your arms and legs. Your blood works show that your creatinine is elevated at 1.5, which is normal from your prior but you should still see Dr. Apple Pacheco for follow-up. Your x-ray does not show any problems. Your ECG is not concerning for a problem you need to stay in the hospital for, but you have a new pattern called joseinjesus , and you should talk to your wafer abrading machine tender about this in the future for follow- up. Otherwise, refrain from drinking caffeine, and if you do, then expect similar jitters as a side effect. See your doctor in the next week for further care. If you experience chest pain, difficulty breathing, palpitations, or any other new or concerning symptoms, please return to the emergency room. - Post Discharge Activity
[2020-04-03 15:08] VITALS: TEMP 97.1; BMI 26.9
[2020-04-03 16:42] LABS: EOS % 1.5 % (0-4.5); HEMATOCRIT 35.7 % (35.4-49); HEMOGLOBIN 11.8 GM/dL (11.7-16.9); LYMPH % 27.3 % (8-40); MCH 27.6 pg (25.7-33.7); MCHC 33.1 g/dl (32.0-35.9); MEAN CELL VOLUME 83.6 fl (80-96); MEAN PLT VOLUME 7.8 fl (7.5-11.1); MONO % 7.1 % (3.8-10.2); NEUT % 63.1 % (42.8-82.8); PLATELET COUNT 261 K/MM3 (134-434); RBC 4.27 M/mm3 (4.00-5.60); RDW 13.8 % (11.9-15.9); WHITE BLOOD COUNT 8.1 K/mm3 (4.0-10.0)
--- NOTE | 2020-04-03 17:04 | PDOC ---
Documentation entered by Ervin Torres SCRIBE, acting as scribe for Juan Jose Bah MD. Juan Jose Bah MD: This documentation has been prepared by the Melissa jeong Angel, SCRIBE, under my direction and personally reviewed by me in its entirety. I confirm that the documentation accurately reflects all work, treatment, procedures, and medical decision making performed by me. Attending Attestation - Resident Resident Name: NitinArsen - ED Attending Attestation I have performed the following: I have examined & evaluated the patient, The case was reviewed & discussed with the resident, I agree w/resident's findings & plan, Exceptions are as noted - HPI HPI: 04/03/20 16:45 The patient is a 79 year old male with a significant past medical history of HTN, BPH s/p prostate resection who presents to the ED with a tingling/numbness sensation in both of his hands and feet. The patient states over 7 months ago he stopped drinking caffeinated coffee, however yesterday he ran out of decaf coffee and drank 3 cups of his wifes caffeinated coffee. Pt noticed his hands and feet started "tingling". The patient then checked his BP and noticed it was elevated which made him concerned enough to come into the ED for evaluation. The patient denies SOB, chest pain, nausea, vomiting, fever/chills, palpitations or any vision changes. - Physicial Exam PE: 04/03/20 17:11 See resident exam - Medical Decision Making 04/03/20 17:11 79 M with bilateral hand and feet tingling, now resolved. Likely due to excessive caffeine intake today. Pt with normal neuro exam. - Labs 04/03/20 17:29 Labs wnl Pt reassessed - continues to feel well Pt is well appearing, with normal vitals. Clinically stable for DC at this time. I discussed the physical exam findings, ancillary test results and final diagnoses with the patient. I answered all of the patient's questions. The patient was satisfied with the care received and felt comfortable with the discharge plan and treatment plan. The patient agrees to follow up with the primary care physician within 24-72 hours. Discharge - Discharge Information Problems reviewed: Yes Clinical Impression/Diagnosis: Tingling in extremities, Adverse effect of caffeine CKD (chronic kidney disease) Qualifiers: Chronic kidney disease stage: stage 3 (moderate) Qualified Code(s): N18.3 - Chronic kidney disease, stage 3 (moderate) Condition: Stable Disposition: HOME - Follow up/Referral Referrals: Cady Gutierrez MD [Primary Care Provider] - - Patient Discharge Instructions Patient Printed Discharge Instructions: Decreasing Your Caffeine Intake Additional Instructions: Today you were evaluated for high blood pressure and tingling in your arms and legs. Your blood works show that your creatinine is elevated at 1.5, which is normal from your prior but you should still see Dr. Apple Pachceo for follow-up. Your x-ray does not show any problems. Your ECG is not concerning for a problem you need to stay in the hospital for, but you have a new pattern called afsaneh, and you should talk to your industrial commercial groundskeeper about this in the future for follow-up. Otherwise, refrain from drinking caffeine, and if you do, then expect similar jitters as a side effect. See your doctor in the next week for further care. If you experience chest pain, difficulty breathing, palpitations, or any other new or concerning symptoms, please return to the emergency room. - Post Discharge Activity
[2020-04-03 17:20] LABS: ALBUMIN 3.9 g/dl (3.4-5.0); ALK PHOS 72 U/L (45-117); ANION GAP 11 MMOL/L (8-16); BILIRUBIN,TOTAL 0.6 mg/dL (0.2-1); BLOOD UREA NITROGEN 23.1 mg/dL (7-18); CALCIUM 8.7 mg/dL (8.5-10.1); CHLORIDE 103 mmol/L (98-107); CO2 24 mmol/L (21-32); CREATININE 1.5 mg/dL (0.55-1.3); GLUCOSE,RANDOM 90 mg/dL (74-106); POTASSIUM 3.6 mmol/L (3.5-5.1); SGOT/AST 18 U/L (15-37); SGPT/ALT 33 U/L (13-61); SODIUM 139 mmol/L (136-145); TOT PROT 7.2 g/dl (6.4-8.2)
[2020-04-03 18:30] VITALS: BP 160/64; PULSE 84
--- NOTE | 2020-04-04 12:39 | EKG ---
Test Reason : Blood Pressure : / mmHG Vent. Rate : 066 BPM Atrial Rate : 066 BPM P-R Int : 162 ms QRS Dur : 100 ms QT Int : 440 ms P-R-T Axes : 075 016 022 degrees QTc Int : 461 ms SINUS RHYTHM WITH FREQUENT PREMATURE VENTRICULAR COMPLEXES IN A PATTERN OF BIGEMINY CANNOT RULE OUT INFERIOR INFARCT , AGE UNDETERMINED ABNORMAL ECG WHEN COMPARED WITH ECG OF 26-JUL-2019 10:21, PREMATURE VENTRICULAR COMPLEXES ARE NOW PRESENT MINIMAL CRITERIA FOR INFERIOR INFARCT ARE NOW PRESENT QT HAS LENGTHENED Confirmed by LENORA GUEVARA MD ([id number]) on 04/04/2020 12:39:12 PM Referred By: Confirmed By:LENORA GUEVARA MD
== END 2020-04-03 18:32 | disposition home or self-care (01) ==
LOC: JER 14:21
DX: N18.3 Chronic kidney disease, stage 3 (moderate) (principal); R20.0 Anesthesia of skin
CPT/HCPCS: 36415; 71045-TC-FY; 80053; 82550; 82553; 84443; 84484; 85025; 93005; 93010; 99285-25

== ENCOUNTER 2020-11-12 04:46 | Day surgery (SDC) | payer OTHER ==
[2020-11-12 12:35] VITALS: TEMP 98; BMI 26.3
[2020-11-12 16:43] VITALS: BP 126/91; PULSE 77
== END 2020-11-12 15:02 | disposition home or self-care (01) ==
LOC: JASU-ENDO 04:46
PROVIDERS: ATTEND Internal Medicine
PROC: 5A2204Z Restoration of Cardiac Rhythm, Single (ICD-10-PCS; principal; 2020-11-12 13:00)
DX: I48.0 Paroxysmal atrial fibrillation (principal); I42.8 Other cardiomyopathies; I10 Essential (primary) hypertension; E78.5 Hyperlipidemia, unspecified
CPT/HCPCS: 92960; 93005; 93010